=== PATIENT | male | born 1950 | race Caucasian/White ===

== ENCOUNTER 2017-01-21 15:40 | Outpatient (CLI) | payer MEDICARE, OTHER | END 2017-01-21 15:41 | disposition short-term general hospital (02) | LOC: EMS 15:40 | PROVIDERS: ATTEND Surgery | DX: R53.1 Weakness (principal) | CPT/HCPCS: A0425; A0429 ==

== ENCOUNTER 2018-11-29 12:50 | Outpatient (CLI) | payer MEDICARE, BC ==
[~2018-11-29 12:50] MED LIST: ALBUTEROL NEB 2.5 MG/3 ML INH SCH
== END 2018-11-29 12:51 | disposition home or self-care (01) ==
LOC: RT 12:50
PROVIDERS: ATTEND Family Medicine
DX: R06.09 Other forms of dyspnea (principal)
CPT/HCPCS: 94060; 94664

== ENCOUNTER 2019-02-22 13:13 | Outpatient (CLI) | payer MEDICARE, BC ==
[2019-02-22 17:53] LABS: BASOPHILS # (AUTO) 0.1 10^3/uL (0.0-0.1); BASOPHILS % (AUTO) 0.8 %; EOSINOPHILS # (AUTO) 0.7 10^3/uL (0.0-0.7); EOSINOPHILS % (AUTO) 8.6 %; LYMPHOCYTES # (AUTO) 1.5 10^3/uL (1.5-3.5); LYMPHOCYTES % (AUTO) 17.4 %; MEAN CORPUSCULAR HEMOGLOBIN 31.2 pg (27.0-31.0); MEAN CORPUSCULAR HGB CONC 31.3 g/dL (32.0-36.0); MEAN CORPUSCULAR VOLUME 99.7 fL (80.0-94.0); MEAN PLATELET VOLUME 10.3 fL (7.4-11.4); MONOCYTES # (AUTO) 0.9 10^3/uL (0.0-1.0); MONOCYTES % (AUTO) 10.8 %; NEUTROPHILS # (AUTO) 5.2 10^3/uL (1.5-6.6); NEUTROPHILS % (AUTO) 61.8 %; PLT - PLATELET COUNT 255 10^3/uL (130-450); RED BLOOD COUNT 3.85 10^6/uL (4.70-6.10); RED CELL DISTRIBUTION WIDTH 12.8 % (12.0-15.0); WHITE BLOOD COUNT 8.4 x10^3/uL (4.8-10.8)
[2019-02-22 18:21] LABS: ALBUMIN 3.7 g/dL (3.2-5.5); BILIRUBIN,TOTAL 0.7 mg/dL (0.2-1.0); CALCIUM 9.1 mg/dL (8.5-10.3); CREATININE 2.4 mg/dL (0.6-1.2); TOTAL PROTEIN 7.5 g/dL (6.7-8.2)
[2019-02-22 18:26] LABS: THYROID STIMULATING HORMONE 0.92 uIU/mL (0.34-5.60)
[2019-02-22 18:34] LABS: FERRITIN 146.9 ng/mL (23.9-336.2)
[2019-02-22 18:37] LABS: FOLATE 14.75 ng/mL (5.90 - >24.8)
[2019-02-22 20:56] LABS: PLATELET ESTIMATE, MANUAL NORMAL (130-450,000) (NORMAL); PLATELET MORPHOLOGY RARE GIANT PLATELETS (NORMAL); RBC MORPHOLOGY (MULTIPLE) NORMAL APPEARANCE (NORMAL)
== END 2019-02-22 13:14 | disposition home or self-care (01) ==
LOC: LAB.S 13:13
PROVIDERS: ATTEND Nurse Practitioner Family
DX: D64.9 Anemia, unspecified (principal); R71.8 Other abnormality of red blood cells; N18.3 Chronic kidney disease, stage 3 (moderate)
CPT/HCPCS: 36415; 80053; 82607; 82728; 82746; 83540; 84443; 84466; 85025

== ENCOUNTER 2019-03-18 11:46 | Outpatient (CLI) | payer MEDICARE, BC ==
[2019-03-18] MEDS ORDERED: REGADENOSON 0.4 MG/5 ML SYRINGE IVP ONE ×2 (12:59→13:30)
[2019-03-18] MEDS ORDERED: AMINOPHYLLINE 250 MG/10 ML VIAL ONE (12:59)
--- NOTE | 2019-03-18 15:42 | CARDIAC PROCEDURE NOTE ---
DATE OF SERVICE: 03/18/2019 Physician: Phoebe Wiggins MD, [facility] INDICATIONS: Dyspnea. CARDIAC RISK FACTORS: Male gender, advanced age, hypertension, recent ex-smoker. PROCEDURE: After signing informed consent, the patient underwent a Lexiscan pharmaceutical stress test with nuclear myocardial perfusion imaging. RESTING HEART RATE: 65. PEAK HEART RATE: 85. RESTING BLOOD PRESSURE: 130/70. PEAK BLOOD PRESSURE: 150/70. Lexiscan was infused per protocol. The patient developed brief "neck pressure," rated 5/10 and brief shortness of breath, both of which subsided in about 2 minutes. Oxygen saturation was 98-100% on room air during the entire test. RESTING EKG: Normal sinus rhythm, left atrial enlargement, early R/S transition. EKG AT PEAK: No new ST-segment or T-wave changes. SUMMARY 1. Abnormal resting EKG. 2. No ischemic changes by EKG criteria during this pharmaceutical stress test. 3. Nuclear images reported separately. 4. Cardiac risk: Low-moderate. cc: RONNIE Mckeon TD: 03/18/2019 15:23 MTDD
--- NOTE | 2019-03-19 09:28 | Nuclear Medicine Report ---
Reason: DYSNEA Procedure Date: 03/18/2019 Accession Number: [id number] / [id number] Procedure: NM - Myocardial Perfusion STR/RST CPT Code: FULL RESULT: EXAM: SINGLE-ISOTOPE PHARMACOLOGICAL STRESS TEST WITH REGADENOSON. SINGLE-ISOTOPE AND ONE-DAY REST/STRESS MYOCARDIAL PERFUSION SCANS WITH TOMOGRAPHIC IMAGING, QUANTITATIVE ANALYSIS, WALL MOTION ANALYSIS AND CALCULATION OF EJECTION FRACTION. EXAM DATE: 03/18/2019 12:40 PM. CLINICAL HISTORY: Dyspnea. COMPARISON: None available. TECHNIQUE: After the intravenous administration of 9.5 mCi of Tc-99m sestamibi, a rest myocardial perfusion scan was done with tomography. Motion correction was applied when appropriate. After an appropriate delay, pharmacological stress was performed with the infusion of 0.4 mg regadenoson per protocol. According to protocol, 43 mCi of Tc-99m sestamibi was injected for stress myocardial perfusion scan. Motion correction was applied when appropriate. Gated tomographic images were obtained for wall motion analysis and computation of left ventricular ejection fraction. FINDINGS: On visual analysis, there is a mild reversible defect in the distal inferolateral wall. No additional convincing significant fixed or reversible perfusion defects. Computer analysis Summed stress score 6 Summed rest score 0 Summed difference score 6 Wall motion analysis demonstrates no focal wall motion abnormality. The left ventricular end-diastolic volume is 70 cc. The left ventricular end-systolic volume is 10 cc. The left ventricular ejection fraction is calculated to be 86%. IMPRESSION: 1. On visual analysis, there is an apparent mild severity reversible defect in the distal inferolateral wall. 2. Left ventricular ejection fraction of >65%. 3. Normal segmental and global wall motion. 4. Normal left ventricular cavity size, no change with stress. 5. Based on computer analysis, mildly abnormal study with moderate ischemia. Please correlate findings with stress ECG tracings and procedure notes. RADIA
== END 2019-03-18 11:47 | disposition home or self-care (01) ==
LOC: DI 11:46
PROVIDERS: ATTEND Nurse Practitioner Family
DX: R06.00 Dyspnea, unspecified (principal); I25.10 Atherosclerotic heart disease of native coronary artery without angina pectoris; R94.31 Abnormal electrocardiogram [ECG] [EKG]
CPT/HCPCS: 78452; 93017; A9500; J2785

== ENCOUNTER 2019-03-25 12:42 | Outpatient (CLI) | payer MEDICARE, BC ==
--- NOTE | 2019-03-25 15:07 | Ultrasound Report ---
Reason: CKD STAGE IV, HTN, ANEMIA Procedure Date: 03/25/2019 Accession Number: [id number] / [id number] Procedure: US - Retroperitoneal CPT Code: FULL RESULT: EXAM: RENAL ULTRASOUND EXAM DATE: 03/25/2019 01:30 PM. CLINICAL HISTORY: CKD STAGE IV, HTN, ANEMIA. COMPARISON: None. TECHNIQUE: Real-time scanning was performed with static images obtained. FINDINGS: Right Kidney: 9.7 x 4.5 x 4.5 cm. Normal echotexture with no stones, contour-deforming masses, or hydronephrosis. No significant atrophy. There is a benign-appearing 3.0 cm maximal diameter upper pole cyst of no significance. Left Kidney: cm. Normal echotexture with no stones, contour-deforming masses, or hydronephrosis. Bladder: Bilateral jets seen. The prevoid bladder volume was 146 cc. The postvoid bladder volume was 10.3 cc. Other: None. IMPRESSION: 1. No suspicious mass, significant atrophy, or hydronephrosis. 2. Tiny postvoid bladder volume. RADIA
== END 2019-03-25 12:43 | disposition home or self-care (01) ==
LOC: DI 12:42
PROVIDERS: ATTEND Internal Medicine Nephrology
DX: I12.9 Hypertensive chronic kidney disease with stage 1 through stage 4 chronic kidney disease, or unspecified chronic kidney disease (principal); N18.4 Chronic kidney disease, stage 4 (severe); D63.1 Anemia in chronic kidney disease; N13.8 Other obstructive and reflux uropathy; N40.1 Benign prostatic hyperplasia with lower urinary tract symptoms
CPT/HCPCS: 76770

== ENCOUNTER 2019-05-21 12:50 | Outpatient (CLI) | payer MEDICARE, BC ==
[2019-05-21 17:38] LABS: ALBUMIN 3.8 g/dL (3.2-5.5); CALCIUM 8.7 mg/dL (8.5-10.3); CREATININE 2.4 mg/dL (0.6-1.2)
[2019-05-21 18:54] LABS: MAGNESIUM 2.1 mg/dL (1.7-2.8); PHOSPHORUS 2.8 mg/dL (2.5-4.6)
== END 2019-05-21 12:51 | disposition home or self-care (01) ==
LOC: LAB.S 12:50
PROVIDERS: ATTEND Internal Medicine Nephrology
DX: I12.9 Hypertensive chronic kidney disease with stage 1 through stage 4 chronic kidney disease, or unspecified chronic kidney disease (principal); N18.4 Chronic kidney disease, stage 4 (severe); D63.1 Anemia in chronic kidney disease; N40.1 Benign prostatic hyperplasia with lower urinary tract symptoms; N13.8 Other obstructive and reflux uropathy
CPT/HCPCS: 36415; 80069; 82728; 83540; 83735; 84466

== ENCOUNTER 2020-04-29 13:03 | Inpatient (IN) | payer MEDICARE, BC ==
[2020-04-29] MEDS ORDERED: SODIUM CHLORIDE 0.9% 1,000 ML IV STA (14:29)
[2020-04-29] MEDS ORDERED: ONDANSETRON 4 MG/2 ML VIAL IVP STA (14:39)
[2020-04-29] MEDS ORDERED: DEXAMETHASONE 10 MG/ML VIAL IVP STA (14:40)
--- NOTE | 2020-04-29 14:42 | ED Physician Documentation ---
History of Present Illness - Stated complaint Stated Complaint: NOT EATING/DRINKING - Chief complaint Chief Complaint: General - History obtained from History obtained from: Patient - Additonal information Additional information: 69-year-old gentleman with history of COPD, esophageal cancer. He just finished up a 5-week course of radiation and chemotherapy. He has had significant troubles with vomiting throughout his chemotherapy. He was inpatient for 4 days last week for intractable nausea and vomiting. He was in the ER at [facility] yesterday. At that time his white blood cell count was 1.0. Hemoglobin 9.5. BUN 47. Creatinine 2.36. He had elevated liver enzymes with an alkaline phosphatase of 367, ALT 500, AST 125, total bili 1.4. Platelets were 78. Despite getting fluids and antiemetics yesterday and taking outpatient antiemetics he returns today with severe vomiting. He has mild central epigastric pain which is not new. No fevers. Review of Systems Ten Systems: 10 systems reviewed and negative Constitutional: reports: Fatigue GI: reports: Nausea, Vomiting, Diarrhea PD PAST MEDICAL HISTORY - Allergies Allergies/Adverse Reactions: Allergies Allergy/AdvReac Type Severity Reaction Status Date / Time prazosin Allergy Unknown Verified 04/29/20 13:29 atorvastatin AdvReac Unknown Verified 04/29/20 13:29 PD ED PE NORMAL - Vitals Vital signs reviewed: Yes - General General: Alert and oriented X 3, No acute distress - HEENT HEENT: PERRL, EOMI - Neck Neck: Supple, no meningeal sign, No bony TTP - Cardiac Cardiac: RRR, No murmur - Respiratory Respiratory: No respiratory distress, Clear bilaterally - Abdomen Abdomen: Normal bowel sounds, Soft, Non tender - Back Back: No CVA TTP, No spinal TTP - Derm Derm: Normal color, Warm and dry - Extremities Extremities: No edema, No calf tenderness / cord - Neuro Neuro: Alert and oriented X 3, Normal speech Results - Vitals Vitals: Vital Signs - 24 hr 04/29/20 04/29/20 13:19 16:00 Temperature 36.5 C Heart Rate 111 H 107 H Respiratory 16 18 Rate Blood Pressure 150/80 H 170/98 H O2 Saturation 99 99 Oxygen O2 Source Room air - Labs Labs: Laboratory Tests 04/29/20 04/29/20 14:51 14:51 WBC 0.8 L* RBC 2.83 L Hgb 8.9 L Hct 27.0 L MCV 95.4 H MCH 31.4 H MCHC 33.0 RDW 12.3 Plt Count 76 L MPV 10.6 Neut # (Auto) Not Reportable Lymph # (Auto) Not Reportable Dorado # (Auto) Not Reportable Eos # (Auto) Not Reportable Baso # (Auto) Not Reportable Absolute Nucleated RBC Not Reportable Total Counted 50 Band Neuts % (Manual) 2 Abnorm Lymph % (Manual) 0 Nucleated RBC % Not Reportable Neutrophils # (Manual) 0.6 L Lymphocytes # (Manual) 0.1 L Monocytes # (Manual) 0.1 Eosinophils # (Manual) 0.0 Basophils # (Manual) 0.0 Differential Comment MANUAL DIFFERENTIAL Platelet Estimate DECREASED (<130,000) Platelet Morphology NORMAL APPEARANCE RBC Morph Micro Appear NORMAL APPEARANCE Sodium 138 Potassium 4.5 Chloride 108 Carbon Dioxide 17 L Anion Gap 13.0 BUN 40 H Creatinine 2.1 H Estimated GFR (MDRD) 31 L Glucose 105 H Calcium 8.6 Magnesium 1.9 Total Bilirubin 1.5 H AST 72 H ALT 309 H Alkaline Phosphatase 270 H Total Protein 6.5 L Albumin 2.9 L Globulin 3.6 Albumin/Globulin Ratio 0.8 L PD MEDICAL DECISION MAKING - ED course ED course: 69-year-old gentleman presents with nausea and vomiting. He is been in and out of the hospital. It is related to his chemotherapy. He was in the ER yesterday and failed to improve with oral meds at home. He was given several rounds of antiemetics here without improvement. He is neutropenic. No evidence of infection or fever. Departure - Departure Disposition: 66 [facility] DC/Xfer Clinical Impression: Intractable nausea and vomiting, Chemotherapy induced nausea and vomiting Neutropenia Qualifiers: Neutropenia type: secondary to cancer chemotherapy Qualified Code(s): D70.1 - Agranulocytosis secondary to cancer chemotherapy; T45.1X5A - Adverse effect of antineoplastic and immunosuppressive drugs, initial encounter Condition: Stable
[2020-04-29 14:58] LABS: BASOPHILS % (AUTO) 1.3 %; EOSINOPHILS % (AUTO) 2.5 %; HGB - HEMOGLOBIN 8.9 g/dL (14.0-18.0); LYMPHOCYTES % (AUTO) 10.1 %; MEAN CORPUSCULAR HEMOGLOBIN 31.4 pg (27.0-31.0); MEAN CORPUSCULAR VOLUME 95.4 fL (80.0-94.0); MEAN PLATELET VOLUME 10.6 fL (7.4-11.4); MONOCYTES % (AUTO) 15.2 %; NEUTROPHILS % (AUTO) 67.1 %; PLT - PLATELET COUNT 76 10^3/uL (130-450); RED BLOOD COUNT 2.83 10^6/uL (4.70-6.10); RED CELL DISTRIBUTION WIDTH 12.3 % (12.0-15.0)
[2020-04-29 15:11] LABS: WHITE BLOOD COUNT 0.8 x10^3/uL (4.8-10.8)
[2020-04-29 15:12] LABS: ABNORMAL LYMPHS % (MANUAL) 0 %; ALBUMIN 2.9 g/dL (3.2-5.5); ALBUMIN/GLOBULIN RATIO 0.8 (1.0-2.2); BILIRUBIN,TOTAL 1.5 mg/dL (0.2-1.0); CALCIUM 8.6 mg/dL (8.5-10.3); CREATININE 2.1 mg/dL (0.6-1.2); MAGNESIUM 1.9 mg/dL (1.7-2.8); TOTAL PROTEIN 6.5 g/dL (6.7-8.2)
[2020-04-29 15:38] LABS: BAND NEUTROPHILS % (MANUAL) 2 %; DIFFERENTIAL COMMENT MANUAL DIFFERENTIAL; LYMPHOCYTES # (MANUAL) 0.1 10^3/uL (1.5-3.5); LYMPHOCYTES % (MANUAL) 16 %; MONOCYTES # (MANUAL) 0.1 10^3/uL (0.0-1.0); PLATELET ESTIMATE, MANUAL DECREASED (<130,000) (NORMAL); PLATELET MORPHOLOGY NORMAL APPEARANCE (NORMAL); RBC MORPHOLOGY (MULTIPLE) NORMAL APPEARANCE (NORMAL)
[2020-04-29] MEDS ORDERED: METOCLOPRAMIDE 10 MG/2 ML VIAL IVP STA (16:47)
[2020-04-29] MEDS ORDERED: ONDANSETRON 4 MG/2 ML VIAL IVP PRN (17:44)
[2020-04-29 18:08] LABS: INR 1.2 (0.8-1.2); PT - PROTHROMBIN TIME 13.4 secs (9.9-12.6)
[2020-04-29] MEDS: DEXTROSE 5%-0.9% NACL 1,000 ML IV SCH (18:56)
--- NOTE | 2020-04-29 19:29 | HISTORY & PHYSICAL EXAMINATION ---
Chief Complaint - Chief Complaint Chief Complaint: Intractable nausea vomiting History of Present Illness - Admitted From Admitted From:: [facility] ED - History Obtained From Records Reviewed: Yes History obtained from: Patient - History of Present Illness HPI Comment/Other: Patient is a 69-year-old male with history of esophageal cancer who presented to the ED with intractable nausea vomiting and diarrhea. For the past 6 weeks he has been undergoing chemo/radiation therapy. This was completed about a week ago. His cancer care is with [facility]. In this time he has been significantly nauseous with frequent vomits daily. He has been to the emergency room multiple times on account of this. Today he reported about 5 episodes of vomiting and 3 episodes of diarrhea. Consequently he is very weak. His creatinine upon work- up in the ED was 2.1. He denied chest pain, dyspnea or fever. He reports being cold he has a mild sharp abdominal pain which is intermittent. He lives with his . He normally walks without any walking aid lately his been requiring some assistance with personal cares and grooming. History - Past Medical History Cardiovascular: reports: Hypertension, High cholesterol Respiratory: reports: COPD, Emphysema Neuro: reports: TIA GI: reports: GERD : reports: Renal insuffiency (chronic) Other Past Medical History: Esophageal cancer - Past Surgical History HEENT: reports: Tonsil/Adenoidectomy - Family & Social History Family History Comment/Other: Patient's brother recently from esophageal cancer. His father from lung cancer. His mother at age 90 from C. difficile infection. Living arrangement: At home Living Situation: With spouse/s.o. Social History Notes: Lives at home with his . He had smoked cigarettes for at least 30 years but quit about 2 years ago. He also stopped drinking about 6 weeks ago when he was diagnosed with esophageal cancer. He denies recreational substance use. - POLST Patient has POLST: No POLST Status: Full Code Meds/Allgy - Home Medications Home Medications: Ambulatory Orders Medication Instructions Recorded Confirmed Albuterol Sulf [Ventolin Hfa 1 - 2 puffs INH Q4HR PRN 04/29/20 04/29/20 Inhaler] Aspirin Chewable [St Vishnu 81 mg PO DAILY 04/29/20 04/29/20 Aspirin] Budesonide/Formoterol Fumarate 1 puffs INH DAILY 04/29/20 04/29/20 [Symbicort 80-4.5 Mcg Inhaler] Metoclopramide [Reglan] 1 tab PO PRN PRN 04/29/20 04/29/20 Metoprolol Succinate [Toprol Xl] 25 mg PO DAILY 04/29/20 04/29/20 Pantoprazole [Protonix] 40 mg PO DAILY 04/29/20 04/29/20 Prochlorperazine [Compazine] 10 mg PO Q6H PRN 04/29/20 04/29/20 Rosuvastatin Calcium [Crestor] 20 mg PO DAILY 04/29/20 04/29/20 amLODIPine [Norvasc] 5 mg PO HS 04/29/20 04/29/20 - Allergies Allergies/Adverse Reactions: Allergies Allergy/AdvReac Type Severity Reaction Status Date / Time prazosin Allergy Unknown Verified 04/29/20 13:29 atorvastatin AdvReac Unknown Verified 04/29/20 13:29 Review of Systems - Constitutional Constitutional: reports: Fatigue, Weakness, Poor appetite. denies: Fever - Eyes Eyes: denies: Pain - Ears, Nose & Throat Ears, Nose & Throat: denies: Ear pain - Cardiovascular Cariovascular: denies: Irregular heart rate, Palpitations, Chest pain, Edema, Lightheadedness, Syncope - Respiratory Respiratory: reports: Cough. denies: Sputum production, Wheezing, SOB at rest, SOB with exertion - Gastrointestinal Gastrointestinal: reports: Abdominal pain, Diarrhea, Nausea, Vomiting, Reflux/heartburn, Bloating, Poor appetite. denies: Abdominal distention, Constipation, Coffee grounds emesis - Genitourinary Genitourinary: denies: Dysuria, Frequency, Urgency, Hematuria - Musculoskeletal Musculoskeletal: denies: Muscle pain, Back pain, Muscle aches - Integumentary Integumentary: denies: Rash, Pruritis, Lesions - Neurological Neurological: reports: General weakness. denies: Focal weakness, Headache, Dizziness, Numbness, Memory problems - Psychiatric Psychiatric: denies: Depression, Anxiety - Endocrine Endocrine: denies: Polyuria, Polydypsia - Hematologic/Lymphatic Hematologic/Lymphatic: denies: Anemia, Bruising, Petechiae Prior Level of Functionality: Patient is normally independent of activities of daily living. He would no rmally get around without any walking aid. However lately he has been requiring some assistance with personal care. Exam - Vital Signs Vital Signs: Vital Signs x48h Temp Pulse Pulse Resp BP BP Pulse Ox 04/29/20 18:00 36.6 C 99 108 H 18 155/86 H 182/82 H 99 04/29/20 16:00 107 H 18 170/98 H 99 04/29/20 13:19 36.5 C 111 H 16 150/80 H 99 - Physical Exam General Appearance: positive: No acute distress, Alert, Other (Weak) Eyes Bilateral: positive: PERRL, EOMI ENT: positive: Dry mucous membranes Neck: positive: No JVD, Trachea midline Respiratory: positive: Chest non-tender, No respiratory distress, Breath sounds nml. negative: Wheezes, Rales, Rhonchi Cardiovascular: positive: Regular rate & rhythm, No murmur Abdomen: positive: Non-tender, Nml bowel sounds. negative: Guarding, Rebound Back: positive: Nml inspection Skin: positive: Color nml, No rash, Warm, Dry Extremities: positive: Non-tender, Full ROM, Nml appearance, No pedal edema Neurologic/Psychiatric: positive: Oriented x3, Depressed mood/affect Conclusion/Plan - Problem List (1) Intractable nausea and vomiting Conclusion/Plan: This is likely as a result of patient's chemotherapies. Patient reports that the chemotherapy cycle has been completed for a week now. Zofran, Phenergan and Ativan ordered to be used as needed for nausea/vomiting. Patient receiving IV hydration with D5+NS at 125ml/hr (2) Neutropenia Conclusion/Plan: Likely related to chemotherapy for esophageal cancer. Patient is on neutropenic precaution Qualifiers: Neutropenia type: secondary to cancer chemotherapy Qualified Code(s): D70.1 - Agranulocytosis secondary to cancer chemotherapy; T45.1X5A - Adverse effect of antineoplastic and immunosuppressive drugs, initial encounter (3) Esophageal cancer Conclusion/Plan: Patient receives care at [facility]. (4) Hypertension Conclusion/Plan: Hydralazine 10 mg IV every 8 hours ordered (5) Chronic kidney disease Conclusion/Plan: Patient's baseline creatinine is about 2.5. Will monitor (6) Hyperlipidemia Conclusion/Plan: Patient takes rosuvastatin at home. Will order an equivalent statin when patient able to tolerate. (7) COPD (chronic obstructive pulmonary disease) Conclusion/Plan: Not in exacerbation. We will order budesonide/formoterol and DuoNeb as needed. - Lab Results Fish Bones: 04/29/20 14:51 04/29/20 14:51 Core Measures - Anticipated LOS I expect patient to be DC'd or transferred within 96 hours.: Yes - DVT/VTE - Prophylaxis VTE/DVT Device ordered at admit?: Yes
[2020-04-29] MEDS ORDERED: PROMETHAZINE INJ 25 MG in SODIUM CHLORIDE 0.9% 50 ML IV PRN (20:21)
[2020-04-29] MEDS: hydrALAZINE INJ 20 MG/ML VIAL IVP SCH (21:02)
[2020-04-30] MEDS: SODIUM CHLORIDE FLUSH 0.9% 10 ML SYRINGE IVP SCH ×4 (00:30→23:46)
[2020-04-30] MEDS ORDERED: FAMOTIDINE 20 MG/2 ML SYRINGE IVP STA (00:32)
[2020-04-30] MEDS: SODIUM CHLORIDE FLUSH 0.9% 10 ML SYRINGE IVP PRN ×3 (01:01→19:39)
[2020-04-30] MEDS: DEXTROSE 5%-0.9% NACL 1,000 ML IV SCH ×3 (02:45→19:51)
[2020-04-30] MEDS: MORPHINE 2 MG/ML CARPUJECT IVP PRN ×2 (02:48→14:15)
[2020-04-30] MEDS: hydrALAZINE INJ 20 MG/ML VIAL IVP SCH (05:57)
[2020-04-30] MEDS ORDERED: PANTOPRAZOLE 40 MG VIAL IVP SCH (07:00)
[2020-04-30] MEDS ORDERED: hydrALAZINE INJ 20 MG/ML VIAL IVP SCH ×2 (07:00→13:00)
[2020-04-30] MEDS: BUDESONIDE 0.5 MG/2 ML NEB INH SCH ×2 (07:35→19:55)
[2020-04-30] MEDS: FORMOTEROL FUMARATE NEB 20 MCG/2 ML INH SCH ×2 (07:36→19:55)
[2020-04-30] MEDS ORDERED: SODIUM CHLORIDE FLUSH 0.9% 10 ML SYRINGE IVP PRN (09:16)
[2020-04-30 09:17] LABS: BASOPHILS % (AUTO) 1.5 %; HGB - HEMOGLOBIN 8.1 g/dL (14.0-18.0); LYMPHOCYTES # (AUTO) 0.1 10^3/uL (1.5-3.5); LYMPHOCYTES % (AUTO) 9.1 %; MEAN CORPUSCULAR HEMOGLOBIN 31.2 pg (27.0-31.0); MEAN CORPUSCULAR HGB CONC 32.9 g/dL (32.0-36.0); MEAN CORPUSCULAR VOLUME 94.6 fL (80.0-94.0); MEAN PLATELET VOLUME 10.3 fL (7.4-11.4); MONOCYTES # (AUTO) 0.2 10^3/uL (0.0-1.0); MONOCYTES % (AUTO) 27.3 %; NEUTROPHILS % (AUTO) 57.6 %; PLT - PLATELET COUNT 81 10^3/uL (130-450); RED CELL DISTRIBUTION WIDTH 12.6 % (12.0-15.0)
[2020-04-30 09:21] LABS: WHITE BLOOD COUNT 0.7 x10^3/uL (4.8-10.8)
[2020-04-30 09:22] LABS: NEUTROPHILS # (AUTO) 0.4 10^3/uL (1.5-6.6)
[2020-04-30 09:26] LABS: CALCIUM 8.3 mg/dL (8.5-10.3); CREATININE 1.7 mg/dL (0.6-1.2)
[2020-04-30 09:45] LABS: RBC MORPHOLOGY (MULTIPLE) 1+ ANISOCYTOSIS (NORMAL)
[2020-04-30] MEDS ORDERED: PROCHLORPERAZINE 10 MG/2 ML VIAL IVP PRN (10:48)
[2020-04-30] MEDS ORDERED: SUCRALFATE 1 GM/10 ML UDC PO PRN (10:50)
--- NOTE | 2020-04-30 10:53 | PROVIDER PROGRESS NOTE ---
Assessment/Plan - Problem List (1) Intractable nausea and vomiting Assessment/Plan: This has been ongoing for 5 weeks. He required a 4-day inpatient stay at [facility] to manage this and has been discharged with oral Reglan and oral Compazine. Both of these oral tablets make him nauseated and create vomiting. The patient also describes GERD symptoms, possibly from acid refluxing during his vomiting. Continue IV fluids. We will slowly advance diet to a clear liquid diet, getting Zofran 30 minutes before clear liquid diet meals. Will order Carafate as needed for the indigestion/reflux symptoms. Dietary consult planned to help with management. (2) Esophageal cancer Assessment/Plan: According to the patient, he has finished his chemotherapy and radiation therapy. There was a discussion about a feeding tube with the RN of his thoracic surgeon, Dr Puente, however nothing is currently scheduled. Dr. Puente is the surgeon that we will be performing removal of the esophagus and cancer and pulling up his gastric wall to anastomose with the upper esophagus, according to the . That surgery is not scheduled yet. I told the patient, and at bedside today, that we will not be placing any ng or PEG tubes here, and he would need to be transferred to a hospital with higher level of care for that type of management. The plan is to help him with meds and diet changes, as have been started yesterday. They were both pleased that no tube insertion is planned. Will obtain CT of abdomen and chest for evaluation of extent of esophageal tumor and look for esophageal stenosis. There is a written CT report available that was done at [facility] approximately a week ago, for comparison. (3) Elevated LFTs Assessment/Plan: According to records from the recent hospitalization at [facility], this is related to his chemo and radiation. AST and ALT are slightly lower from a week ago. The bilirubin is unchanged. Will follow LFTs every other day. (4) Neutropenia Qualifiers: Neutropenia type: secondary to cancer chemotherapy Qualified Code(s): D70.1 - Agranulocytosis secondary to cancer chemotherapy; T45.1X5A - Adverse effect of antineoplastic and immunosuppressive drugs, initial encounter Assessment/Plan: Related to chemotherapy that he has been is receiving over 5 weeks. WBC of 0.4 has improved to 0.7 today. He is on neutropenic precautions in his room (reverse isolation). (5) Anemia Assessment/Plan: Hemoglobin is running 8-8.5. At recent visits at [facility], his hemoglobin was 9-10. We will order B12, folate levels and iron stores and replace if low. Because of his longstanding vomiting, will also check guaiac stool for any GI bl ood loss. (6) Hypertension Assessment/Plan: Will resume his nighttime amlodipine and daytime Toprol with hold orders because blood pressure is currently "soft" since he is dehydrated (7) Chronic kidney disease Assessment/Plan: He was admitted yesterday with creatinine 2.1 which is his baseline. Today with hydration, his creatinine is 1.7. Follow BMP daily (8) Hyperlipidemia Assessment/Plan: Hold the Crestor so that there are fewer p.o. meds to take during N/V sx. (9) COPD (chronic obstructive pulmonary disease) Assessment/Plan: Currently no exacerbation, but he reports a chronic wet cough. His inhalers will be ordered to use here - Current Meds Current Meds: Current Medications Generic Name Dose Route Start Last Admin Trade Name Freq PRN Reason Stop Dose Admin Budesonide 0.5 mg 04/30/20 07:00 04/30/20 07:35 Pulmicort INH 0.5 mg RTBID EMILY Administration Formoterol Fumarate 20 mcg 04/30/20 07:00 04/30/20 07:36 Perforomist INH 20 mcg RTBID EMILY Administration Dextrose/Sodium Chloride 1,000 mls @ 125 mls/hr 04/29/20 18:00 04/30/20 10:21 D5ns IV 125 mls/hr .Q8H EMILY Administration Morphine Sulfate 2 mg 04/30/20 00:32 04/30/20 02:48 Morphine (Carpuject) IVP 2 mg Q4HR PRN Administration PAIN Pantoprazole Sodium 40 mg 04/30/20 07:00 04/30/20 05:57 Protonix IVP 40 mg QDAC EMILY Administration Sodium Chloride 10 ml 04/29/20 20:17 04/30/20 05:57 Normal Saline Flush 0.9% IVP 10 ml PRN PRN Administration NEEDED PER PROVIDER ORDERS Sodium Chloride 10 ml 04/30/20 01:00 04/30/20 10:22 Normal Saline Flush 0.9% IVP Not Given 0100,0900,1700 EMILY Sodium Chloride 20 ml 04/30/20 09:16 04/30/20 09:00 Normal Saline Flush 0.9% IVP 20 ml PRN PRN Administration After Blood Draw - Lab Result Fish Bone Diagrams: 04/30/20 09:00 04/30/20 09:00 - Additional Planning My Orders: My Active Orders 04/29/20 17:39 DIET [NPO] [DIET] 04/29/20 17:49 Isolation [Infection Precautions] [RC] QSKYFT 04/29/20 17:50 Miscellaenous Nursing Order [] [facility] 04/29/20 18:00 Dextrose 5%-0.9% NaCl [D5ns] 1,000 ml IV 125 mls/hr 04/30/20 10:45 Miscellaenous Nursing Order [] [facility] 04/30/20 10:48 Prochlorperazine Inj [Compazine Inj] 10 mg IVP Q6HR PRN 04/30/20 10:48 Albuterol Sulf [Ventolin Hfa Inhaler] 2 puffs INH Q4HR PRN 04/30/20 10:50 Sucralfate [Carafate] 1 gm PO 0700,1100,1600,2200 PRN 04/30/20 11:00 Metoprolol Succinate [Toprol Xl] 25 mg PO DAILY Pantoprazole [Protonix] 40 mg PO DAILY 04/30/20 Lunch Clear Liquid Diet [DIET] 04/30/20 11:30 Ondansetron Inj [Zofran Inj] 4 mg IVP 0800,1130,1700 04/30/20 21:00 amLODIPine [Norvasc] 5 mg PO HS 05/01/20 09:00 Aspirin Chewable [St Vishnu Aspirin] 81 mg PO DAILY Budesonide/Formoterol Fumarate [Symbicort 80-4.5 Mcg Inhaler] 1 puffs INH DAILY Subjective - Subjective Patient Reports: Feeling Better, Cough, Fatigue, Pain (He has pain in the epigastric area with swallowing. He denies any of his pills getting "stuck" when he swallows however) Objective Vital Signs: Vital Signs - 24 hr 04/29/20 04/29/20 04/29/20 13:19 16:00 18:00 Temperature 36.5 C 36.6 C Heart Rate 111 H 107 H 99 Heart Rate [ 108 H Brachial] Respiratory 16 18 18 Rate Blood Pressure 150/80 H 170/98 H 155/86 H Blood Pressure 182/82 H [Left Brachial artery] O2 Saturation 99 99 99 04/29/20 04/29/20 04/29/20 21:00 21:02 21:07 Temperature Heart Rate Heart Rate [ 96 99 92 Brachial] Respiratory Rate Blood Pressure 135/80 H Blood Pressure 139/64 H 136/76 H [Left Brachial artery] O2 Saturation 04/29/20 04/29/20 04/29/20 21:12 21:15 21:17 Temperature Heart Rate Heart Rate [ 90 91 94 Brachial] Respiratory Rate Blood Pressure Blood Pressure 128/73 131/64 H 120/68 [Left Brachial artery] O2 Saturation 04/29/20 04/29/20 04/29/20 21:22 21:33 21:45 Temperature Heart Rate Heart Rate [ 95 99 95 Brachial] Respiratory Rate Blood Pressure Blood Pressure 106/63 136/56 H 120/59 L [Left Brachial artery] O2 Saturation 04/29/20 04/30/20 04/30/20 22:47 05:57 06:13 Temperature 36.5 C 36.5 C Heart Rate Heart Rate [ 93 97 Brachial] Respiratory 18 18 Rate Blood Pressure 153/74 H Blood Pressure 120/59 L 153/74 H [Left Brachial artery] O2 Saturation 98 97 04/30/20 04/30/20 04/30/20 06:20 06:35 07:38 Temperature Heart Rate 103 H Heart Rate [ Brachial] Respiratory 16 Rate Blood Pressure Blood Pressure 146/64 H 141/61 H [Left Brachial artery] O2 Saturation 04/30/20 08:00 Temperature 36.7 C Heart Rate Heart Rate [ 98 Brachial] Respiratory 18 Rate Blood Pressure Blood Pressure 129/64 [Left Brachial artery] O2 Saturation 99 Oxygen O2 Source Room air I&O (Last 24 Hrs): Intake and Output Totals x24h 04/28/20 04/29/20 04/30/20 23:59 23:59 23:59 Intake Total 1000 1950 Output Total 550 Balance 1000 1400 General: Alert, Oriented x3, Other (appears fatigued) HEENT: Mucous membr. moist/pink, Other (Icteric) Neck: Supple Neuro: Alert, Non Focal Cardiovascular: Regular rate, No murmurs Respiratory: No respiratory distress, Other (Diminishe breath sounds, no rales or wheezing) Abdomen: Normal bowel sounds, Soft, Other (Mildly distended, hypertympanic, Tenderness to moderate palpation only in the epigastric area, no guarding or rebound) Extremities: No edema - Results Results: Laboratory Results WBC 0.7 x10^3/uL (4.8-10.8) L* 04/30/20 09:00 RBC 2.60 10^6/uL (4.70-6.10) L 04/30/20 09:00 Hgb 8.1 g/dL (14.0-18.0) L 04/30/20 09:00 Hct 24.6 % (42.0-52.0) L 04/30/20 09:00 MCV 94.6 fL (80.0-94.0) H 04/30/20 09:00 MCH 31.2 pg (27.0-31.0) H 04/30/20 09:00 MCHC 32.9 g/dL (32.0-36.0) 04/30/20 09:00 RDW 12.6 % (12.0-15.0) 04/30/20 09:00 Plt Count 81 10^3/uL (130-450) L 04/30/20 09:00 MPV 10.3 fL (7.4-11.4) 04/30/20 09:00 Neut # (Auto) 0.4 10^3/uL (1.5-6.6) L* 04/30/20 09:00 Lymph # (Auto) 0.1 10^3/uL (1.5-3.5) L 04/30/20 09:00 Ward # (Auto) 0.2 10^3/uL (0.0-1.0) 04/30/20 09:00 Eos # (Auto) 0.0 10^3/uL (0.0-0.7) 04/30/20 09:00 Baso # (Auto) 0.0 10^3/uL (0.0-0.1) 04/30/20 09:00 Absolute Nucleated RBC 0.00 x10^3/uL 04/30/20 09:00 Total Counted 50 04/29/20 14:51 Band Neuts % (Manual) 2 % (0-10) 04/29/20 14:51 Abnorm Lymph % (Manual) 0 % 04/29/20 14:51 Nucleated RBC % 0.0 /100WBC 04/30/20 09:00 Neutrophils # (Manual) 0.6 10^3/uL (1.5-6.6) L 04/29/20 14:51 Lymphocytes # (Manual) 0.1 10^3/uL (1.5-3.5) L 04/29/20 14:51 Monocytes # (Manual) 0.1 10^3/uL (0.0-1.0) 04/29/20 14:51 Eosinophils # (Manual) 0.0 10^3/uL (0-0.7) 04/29/20 14:51 Basophils # (Manual) 0.0 10^3/uL (0-0.1) 04/29/20 14:51 Differential Comment MANUAL DIFFERENTIAL 04/29/20 14:51 Manual Slide Review Indicated 04/30/20 09:00 Platelet Estimate DECREASED (<130,000) (NORMAL) 04/29/20 14:51 Platelet Morphology NORMAL APPEARANCE (NORMAL) 04/29/20 14:51 RBC Morph Micro Appear 1+ ANISOCYTOSIS (NORMAL) 04/30/20 09:00 PT 13.4 secs (9.9-12.6) H 04/29/20 14:50 INR 1.2 (0.8-1.2) 04/29/20 14:50 Sodium 140 mmol/L (135-145) 04/30/20 09:00 Potassium 4.4 mmol/L (3.5-5.0) 04/30/20 09:00 Chloride 112 mmol/L (101-111) H 04/30/20 09:00 Carbon Dioxide 18 mmol/L (21-32) L 04/30/20 09:00 Anion Gap 10.0 (6-13) 04/30/20 09:00 BUN 35 mg/dL (6-20) H 04/30/20 09:00 Creatinine 1.7 mg/dL (0.6-1.2) H 04/30/20 09:00 Estimated GFR (MDRD) 40 (>89) L 04/30/20 09:00 Glucose 167 mg/dL (70-100) H 04/30/20 09:00 Calcium 8.3 mg/dL (8.5-10.3) L 04/30/20 09:00 Magnesium 1.9 mg/dL (1.7-2.8) 04/29/20 14:51 Total Bilirubin 1.5 mg/dL (0.2-1.0) H 04/29/20 14:51 AST 72 IU/L (10-42) H 04/29/20 14:51 ALT 309 IU/L (10-60) H 04/29/20 14:51 Alkaline Phosphatase 270 IU/L (42-121) H 04/29/20 14:51 Total Protein 6.5 g/dL (6.7-8.2) L 04/29/20 14:51 Albumin 2.9 g/dL (3.2-5.5) L 04/29/20 14:51 Globulin 3.6 g/dL (2.1-4.2) 04/29/20 14:51 Albumin/Globulin Ratio 0.8 (1.0-2.2) L 04/29/20 14:51 SARS-CoV-2 (PCR) NOT DETECTED 04/28/20 20:15
[2020-04-30] MEDS ORDERED: ALBUTEROL NEB 2.5 MG/3 ML INH PRN (10:54)
[2020-04-30] MEDS: ONDANSETRON 4 MG/2 ML VIAL IVP SCH ×2 (10:57→16:55)
[2020-04-30] MEDS: METOPROLOL SUCCINATE 25 MG TABLET PO SCH (11:06)
--- NOTE | 2020-04-30 14:05 | CT Report ---
PROCEDURE: CHEST WO INDICATIONS: Esophageal cancer TECHNIQUE: Noncontrast 5 mm thick sections acquired from the pulmonary apices to the posterior costophrenic angl es. 7 mm thick coronal and sagittal MIP reformats were then acquired. For radiation dose reduction, the following was used: automated exposure control, adjustment of mA and/or kV according to patient size. COMPARISON: CT abdomen and pelvis from the same date FINDINGS: Image quality: Excellent. Lungs and pleura: 3 mm pulmonary nodule right upper lobe, image 138/3. 4 mm pulmonary nodule, anteri or segment right upper lobe, image 165/3. 3 mm fissural nodule, minor fissure, right lung, possibly r epresenting a small lymph node, image 172/3. No acute air space opacities. No pleural effusions or p neumothorax. Central and peripheral airways are patent and normal in caliber. Mediastinum: Heart size is normal. No pericardial effusion. Relatively advanced coronary artery ca lcifications. No mediastinal adenopathy by size criteria. The ascending aorta is top normal in size, measuring or centimeters in diameter. Pulmonary arteries are normal in caliber. Distal esophageal wal l thickening above the GE junction. No hiatal hernia. Bones and chest wall: No suspicious bony lesions. No vertebral body compression fractures. No axil yahaira or supraclavicular adenopathy by size criteria. The thyroid is normal in size. Port-A-Cath in satisfactory position. Abdomen: Visualized upper abdominal solid organs and bowel loops appear normal in the absence of con trast. IMPRESSION: 1. Distal esophageal wall thickening may represent the patient's primary esophageal carcinoma. 2. There are 3 small nodular densities in the right lung, uncertain etiology. These can be followed o n subsequent studies. 3. Coronary artery disease. Reviewed by: Iban Mares MD on 04/30/2020 2:04 PM PST Approved by: Iban Mares MD on 04/30/2020 2:04 PM PST Station ID: [id number]
--- NOTE | 2020-04-30 14:08 | CT Report ---
PROCEDURE: Abdomen/Pelvis WO INDICATIONS: abdominal pain TECHNIQUE: Noncontrast 5 mm thick sections acquired from the diaphragms to the symphysis. 5 mm coronal and sagi ttal reformats were then performed. For radiation dose reduction, the following was used: automated exposure control, adjustment of mA and/or kV according to patient size. COMPARISON: CT chest from the same date FINDINGS: Image quality: Excellent. ABDOMEN: Lung bases: Lung bases are clear. Heart size is normal. Coronary artery calcifications. Distal eso phageal wall thickening. Small hiatal hernia. Solid organs: Liver and spleen are normal in size. Gallbladder is unremarkable. Pancreas is normal in contours. No adrenal nodules. Kidneys are normal in size, without hydronephrosis or nephrolithi asis. Peritoneum and bowel: Unenhanced bowel loops demonstrate normal wall thickness and caliber. No free fluid or air. Nodes and vessels: There are tiny left gastric lymph nodes, not clearly pathologic. No other lymphad enopathy is identified. No retroperitoneal or mesenteric adenopathy by size criteria. Aorta and infe rior vena cava are normal in caliber. Diffuse atherosclerotic calcifications in the aorta and iliac arteries. Miscellaneous: No ventral hernias. PELVIS: Genitourinary: Bladder wall thickness is normal. Miscellaneous: No inguinal hernias or adenopathy. Bones: No suspicious bony lesions. No vertebral body compression fractures. IMPRESSION: 1. Distal esophageal wall thickening may represent patient's primary esophageal carcinoma. 2. Small left gastric lymph nodes, not clearly pathologic. 3. No evidence of metastatic disease. 4. Atherosclerosis. Reviewed by: Iban Mares MD on 04/30/2020 2:07 PM [facility] Approved by: Iban Mares MD on 04/30/2020 2:07 PM PST Station ID: [id number]
[2020-04-30] MEDS: LORazepam 2 MG/ML VIAL IVP PRN (19:39)
[2020-04-30] MEDS: amLODIPine 5 MG TABLET PO SCH (21:43)
[2020-05-01] MEDS: DEXTROSE 5%-0.9% NACL 1,000 ML IV SCH ×2 (03:33→13:22)
[2020-05-01 05:27] LABS: EOSINOPHILS % (AUTO) 2.2 %; HGB - HEMOGLOBIN 7.5 g/dL (14.0-18.0); LYMPHOCYTES % (AUTO) 6.7 %; MEAN CORPUSCULAR HEMOGLOBIN 32.1 pg (27.0-31.0); MEAN CORPUSCULAR HGB CONC 33.2 g/dL (32.0-36.0); MEAN CORPUSCULAR VOLUME 96.6 fL (80.0-94.0); MEAN PLATELET VOLUME 10.3 fL (7.4-11.4); MONOCYTES # (AUTO) 0.3 10^3/uL (0.0-1.0); MONOCYTES % (AUTO) 55.6 %; NEUTROPHILS % (AUTO) 35.5 %; PLT - PLATELET COUNT 86 10^3/uL (130-450); RED BLOOD COUNT 2.34 10^6/uL (4.70-6.10); RED CELL DISTRIBUTION WIDTH 12.9 % (12.0-15.0)
[2020-05-01 05:30] LABS: NEUTROPHILS # (AUTO) 0.2 10^3/uL (1.5-6.6); WHITE BLOOD COUNT 0.5 x10^3/uL (4.8-10.8)
[2020-05-01 05:53] LABS: PLATELET ESTIMATE, MANUAL DECREASED (<130,000) (NORMAL); PLATELET MORPHOLOGY NORMAL APPEARANCE (NORMAL); RBC MORPHOLOGY (MULTIPLE) NORMAL APPEARANCE (NORMAL)
[2020-05-01 06:00] LABS: ALBUMIN 2.4 g/dL (3.2-5.5); BILIRUBIN,DIRECT 0.4 mg/dL (0.1-0.5); BILIRUBIN,TOTAL 0.9 mg/dL (0.2-1.0); CALCIUM 7.9 mg/dL (8.5-10.3); TOTAL PROTEIN 5.5 g/dL (6.7-8.2)
[2020-05-01 06:05] LABS: FOLATE 11.24 ng/mL (5.90 - >24.8)
[2020-05-01] MEDS ORDERED: PANTOPRAZOLE 40 MG TABLET PO SCH (07:00)
[2020-05-01 07:22] LABS: MAGNESIUM 1.6 mg/dL (1.7-2.8)
[2020-05-01] MEDS: ONDANSETRON 4 MG/2 ML VIAL IVP SCH ×3 (08:15→16:22)
[2020-05-01] MEDS: SODIUM CHLORIDE FLUSH 0.9% 10 ML SYRINGE IVP SCH ×3 (08:15→23:34)
[2020-05-01] MEDS: HYDROmorphone 0.5 MG/0.5 ML SYRINGE IVP PRN ×2 (08:15→18:39)
[2020-05-01] MEDS: METOPROLOL SUCCINATE 25 MG TABLET PO SCH (08:17)
[2020-05-01] MEDS ORDERED: FORMOTEROL FUMARATE INH SCH (09:00)
[2020-05-01] MEDS ORDERED: [UNRECOGNIZED DRUG - OTHER] INH SCH (09:00)
[2020-05-01] MEDS ORDERED: ASPIRIN CHEW 81 MG TABLET PO SCH (09:00)
[2020-05-01] MEDS ORDERED: BUDESONIDE INH SCH (09:00)
[2020-05-01] MEDS: FORMOTEROL FUMARATE NEB 20 MCG/2 ML INH SCH ×2 (09:38→18:12)
[2020-05-01] MEDS: BUDESONIDE 0.5 MG/2 ML NEB INH SCH ×2 (09:38→18:12)
[2020-05-01] MEDS: FLUCONAZOLE 200 MG/100 ML 100 ML IV SCH (10:04)
[2020-05-01] MEDS ORDERED: MAGNESIUM SULFATE 2 GRAM 2 GM/50 ML BAG IV SCH (10:30)
[2020-05-01] MEDS: SUCRALFATE 1 GM/10 ML UDC PO SCH ×3 (10:53→21:26)
[2020-05-01] MEDS: FERROUS SULFATE 300 MG/5 ML UDC PO SCH (11:36)
--- NOTE | 2020-05-01 11:46 | PROVIDER PROGRESS NOTE ---
Assessment/Plan - Problem List (1) Intractable nausea and vomiting Assessment/Plan: There has been no vomiting since here. He has been ordered to get scheduled antiemetic 20 minutes before his meals which are clear liquid diet. He is now done with chemotherapy, opefully the chemo side effects will subside with supportive care. Continue IV fluids for maintenance. Appreciate nutrition consult for assistance with diet suggestions. (2) Esophagitis Assessment/Plan: He continues to have pain in the epigastrium when swallowing liquids. His CT abdomen showed distal esophageal wall thickening. He will not undergo an EGD here, since he has complex esophageal pathology, but will be treated empirically since by his clinical presentation he has esophagitis which is likely related to frequent vomiting for 5 weeks and acid reflux on top of radiation. He is getting liquid Sucralfate prn and it did help him with 1 dose yesterday. Will make the liquid Sucralfate scheduled. He is also on empiric Fluconazole for possible candidal esophagitis, given his immune compromised state with neutropenia. Diet will remain clear liquids only. Continue to control symptoms of nausea with antiemetics scheduled and alternating Zofran iv with Compazine iv. From the discharge summary from [facility], he had no benefit from Magic mouthwash, he actually felt worse possibly from the taste. Continue IV fluids for maintenance. Will start tpn, for protein and calories, and decrease the D5NS iv fluid rate. Continue iv Dilaudid prn pain. Stop daily baby aspirin in case this is adding to gastritis. Will only keep his p.o. blood pressure meds given po, and will change his Pr otonix to IV, continue fluconazole IV Will order Peridex mouth care. I offered to the patient that if he does not have further improvement in his esophagitis symptoms, he could be transferred to [facility] for EGD and specialized care with GI. The patient stated he would rather have supportive care done here, and await for healing of the esophagus. (3) Esophageal cancer Assessment/Plan: The CT showed no evidence of esophageal stricture or obstruction but the distal esophageal wall itself was thick. The overall changes are slightly improved fro m the description by report of his CT scan done in [facility] about 1 week ago. This was all reported to the pt and at bedside today. (4) Elevated LFTs Assessment/Plan: These were presumed to be from chemotherapy, as per the discharge summary from [facility] from a week ago. The LFTs are improving on repeat monitoring. (5) Neutropenia Qualifiers: Neutropenia type: secondary to cancer chemotherapy Qualified Code(s): D70.1 - Agranulocytosis secondary to cancer chemotherapy; T45.1X5A - Adverse effect of antineoplastic and immunosuppressive drugs, initial encounter Assessment/Plan: His white blood count is minimally elevating since admission. Continue with reverse isolation/neutropenic precautions. Follow CBC daily (6) Anemia Assessment/Plan: B12 and folate levels were adequate. Iron stores were extremely low. We will start on liquid oral iron replacement. Follow CBC daily. Transfuse if hemoglobin under 7 or if under 8 with sx (7) Hypertension Assessment/Plan: BP celevated at 150-160 systolic. His home dose of Toprol every morning and Amlodipine every night has been resumed. Elevated blood pressure may also be from pain, and he is getting Dilaudid prn. (8) Chronic kidney disease Assessment/Plan: His baseline creatinine is approximately 1.3-1.5. Here he is improving slowly from BUN/creat at admission of 40/2.1>> 35/1.7 >> today 27/2.0. Continue IV fluids for maintenance. (9) Hyperlipidemia Assessment/Plan: Crestor is currently on hold in order to diminish the amount of tablets to take p.o. while he has esophagitis (10) COPD (chronic obstructive pulmonary disease) Assessment/Plan: Oertli not in exacerbation although he has a chronic cough that is wet. He has prn inhalers reordered - Current Meds Current Meds: Current Medications Generic Name Dose Route Start Last Admin Trade Name Freq PRN Reason Stop Dose Admin Albuterol 2.5 mg 04/30/20 10:54 04/30/20 19:55 INH 2.5 mg Q4HR PRN Administration Shortness of Air/Wheezing Amlodipine Besylate 5 mg 04/30/20 21:00 04/30/20 21:43 Norvasc PO 5 mg HS EMILY Administration Aspirin 81 mg 05/01/20 09:00 05/01/20 08:17 [facility] Aspirin PO 81 mg DAILY EMILY Administration Budesonide 0.5 mg 04/30/20 07:00 05/01/20 09:38 Pulmicort INH Not Given RTBID EMILY Ferrous Sulfate 300 mg 05/01/20 12:00 05/01/20 11:36 Feosol Liquid PO 300 mg DAILYWM EMILY Administration Formoterol Fumarate 20 mcg 04/30/20 07:00 05/01/20 09:38 Perforomist INH Not Given RTBID EMILY Hydromorphone HCl 0.5 mg 04/30/20 19:26 05/01/20 08:15 Dilaudid Inj Syringe IVP 0.5 mg Q2H PRN Administration PAIN Dextrose/Sodium Chloride 1,000 mls @ 125 mls/hr 04/29/20 18:00 05/01/20 03:33 D5ns IV 125 mls/hr .Q8H EMILY Administration Fluconazole 100 mls @ 100 mls/hr 05/01/20 09:00 05/01/20 10:04 Diflucan 200 Mg/100 Ml IV 05/08/20 08:59 100 mls/hr DAILY EMILY Administration Magnesium Sulfate 2 gm in 50 mls @ 25 mls/hr 05/01/20 10:30 05/01/20 11:27 Magnesium Sulfate IV 05/01/20 13:30 25 mls/hr ONCE EMILY Administration Lorazepam 0.5 mg 04/29/20 20:21 04/30/20 19:39 Ativan Inj (Vial) IVP 0.5 mg Q6H PRN Administration Nausea / Vomiting Metoprolol Succinate 25 mg 04/30/20 11:00 05/01/20 08:17 Toprol Xl PO 25 mg DAILY EMILY Administration Morphine Sulfate 2 mg 04/30/20 00:32 04/30/20 14:15 Morphine (Carpuject) IVP 2 mg Q4HR PRN Administration PAIN Ondansetron HCl 4 mg 04/30/20 11:30 05/01/20 10:53 Zofran Inj IVP 4 mg 0800,1130,1700 EMILY Administration Pantoprazole Sodium 40 mg 05/01/20 07:00 05/01/20 06:28 Protonix PO 40 mg QDAC EMILY Administration Sodium Chloride 10 ml 04/29/20 20:17 04/30/20 19:39 Normal Saline Flush 0.9% IVP 10 ml PRN PRN Administration NEEDED PER PROVIDER ORDERS Sodium Chloride 10 ml 04/30/20 01:00 05/01/20 08:15 Normal Saline Flush 0.9% IVP 10 ml 0100,0900,1700 EMILY Administration Sodium Chloride 20 ml 04/30/20 09:16 04/30/20 09:00 Normal Saline Flush 0.9% IVP 20 ml PRN PRN Administration After Blood Draw Sucralfate 1 gm 05/01/20 11:00 05/01/20 10:53 Carafate PO 1 gm 0700,1100,1600,2200 EMILY Administration - Lab Result Fish Bone Diagrams: 05/01/20 04:40 05/01/20 04:40 - Additional Planning My Orders: My Active Orders 04/30/20 10:45 Miscellaenous Nursing Order [RC] QSHIFT 04/30/20 10:48 Prochlorperazine Inj [Compazine Inj] 10 mg IVP Q6HR PRN 04/30/20 10:54 Albuterol 2.5 mg INH Q4HR PRN 04/30/20 11:00 Nutrition Consult [CONS] Routine Metoprolol Succinate [Toprol Xl] 25 mg PO DAILY 04/30/20 11:30 Ondansetron Inj [Zofran Inj] 4 mg IVP 0800,1130,1700 04/30/20 Dinner Clear Liquid Diet [DIET] 04/30/20 21:00 amLODIPine [Norvasc] 5 mg PO HS 05/01/20 07:00 Pantoprazole [Protonix] 40 mg PO QDAC 05/01/20 09:00 Aspirin Chewable [[facility] Aspirin] 81 mg PO DAILY 05/01/20 10:30 Magnesium Sulfate 2 Gram [Magnesium Sulfate] 2 gm in 50 ml IV ONCE 05/01/20 11:00 Sucralfate [Carafate] 1 gm PO 0700,1100,1600,2200 05/01/20 12:00 Ferrous Sulfate Liquid [Feosol Liquid] 300 mg PO DAILYWM Subjective - Subjective Patient Reports: Resting Comfortably, Pain (Still has significant burning pain in the epigastrium when he takes in clear liquids.) Objective Vital Signs: Vital Signs - 24 hr 04/30/20 04/30/20 04/30/20 15:49 19:56 23:27 Temperature 36.4 C L 37.5 C Heart Rate 103 H Heart Rate [ 103 H 119 H Brachial] Respiratory 16 16 24 Rate Blood Pressure 122/54 L 163/71 H [Left Brachial artery] O2 Saturation 97 93 05/01/20 05/01/20 08:00 09:20 Temperature 36.7 C Heart Rate 108 H Heart Rate [ 109 H Brachial] Respiratory 20 20 Rate Blood Pressure 150/67 H [Left Brachial artery] O2 Saturation 94 Oxygen O2 Source Room air I&O (Last 24 Hrs): Intake and Output Totals x24h 04/29/20 04/30/20 05/01/20 23:59 23:59 23:59 Intake Total 1000 3250 1162.5 Output Total 750 250 Balance 1000 2500 912.5 General: Alert HEENT: Mucous membr. moist/pink, Other Neck: Supple, No JVD Neuro: Alert, Other Cardiovascular: Regular rate, No murmurs Respiratory: No respiratory distress, Breath sounds nml Abdomen: Normal bowel sounds, Soft Extremities: No edema - Results Results: Laboratory Results WBC 0.5 x10^3/uL (4.8-10.8) L* 05/01/20 04:40 RBC 2.34 10^6/uL (4.70-6.10) L 05/01/20 04:40 Hgb 7.5 g/dL (14.0-18.0) L 05/01/20 04:40 Hct 22.6 % (42.0-52.0) L 05/01/20 04:40 MCV 96.6 fL (80.0-94.0) H 05/01/20 04:40 MCH 32.1 pg (27.0-31.0) H 05/01/20 04:40 MCHC 33.2 g/dL (32.0-36.0) 05/01/20 04:40 RDW 12.9 % (12.0-15.0) 05/01/20 04:40 Plt Count 86 10^3/uL (130-450) L 05/01/20 04:40 MPV 10.3 fL (7.4-11.4) 05/01/20 04:40 Neut # (Auto) 0.2 10^3/uL (1.5-6.6) L* 05/01/20 04:40 Lymph # (Auto) 0.0 10^3/uL (1.5-3.5) L 05/01/20 04:40 [place] # (Auto) 0.3 10^3/uL (0.0-1.0) 05/01/20 04:40 Eos # (Auto) 0.0 10^3/uL (0.0-0.7) 05/01/20 04:40 Baso # (Auto) 0.0 10^3/uL (0.0-0.1) 05/01/20 04:40 Absolute Nucleated RBC 0.00 x10^3/uL 05/01/20 04:40 Total Counted 50 04/29/20 14:51 Band Neuts % (Manual) Not Reportable 05/01/20 04:40 Abnorm Lymph % (Manual) Not Reportable 05/01/20 04:40 Nucleated RBC % 0.0 /100WBC 05/01/20 04:40 Neutrophils # (Manual) Not Reportable 05/01/20 04:40 Lymphocytes # (Manual) Not Reportable 05/01/20 04:40 Monocytes # (Manual) Not Reportable 05/01/20 04:40 Eosinophils # (Manual) Not Reportable 05/01/20 04:40 Basophils # (Manual) Not Reportable 05/01/20 04:40 Differential Comment MANUAL DIFFERENTIAL 04/29/20 14:51 Manual Slide Review Indicated 04/30/20 09:00 Platelet Estimate DECREASED (<130,000) (NORMAL) 05/01/20 04:40 Platelet Morphology NORMAL APPEARANCE (NORMAL) 05/01/20 04:40 RBC Morph Micro Appear NORMAL APPEARANCE (NORMAL) 05/01/20 04:40 PT 13.4 secs (9.9-12.6) H 04/29/20 14:50 INR 1.2 (0.8-1.2) 04/29/20 14:50 Sodium 141 mmol/L (135-145) 05/01/20 04:40 Potassium 4.2 mmol/L (3.5-5.0) 05/01/20 04:40 Chloride 115 mmol/L (101-111) H 05/01/20 04:40 Carbon Dioxide 18 mmol/L (21-32) L 05/01/20 04:40 Anion Gap 8.0 (6-13) 05/01/20 04:40 BUN 27 mg/dL (6-20) H 05/01/20 04:40 Creatinine 2.0 mg/dL (0.6-1.2) H 05/01/20 04:40 Estimated GFR (MDRD) 33 (>89) L 05/01/20 04:40 Glucose 127 mg/dL (70-100) H 05/01/20 04:40 Calcium 7.9 mg/dL (8.5-10.3) L 05/01/20 04:40 Magnesium 1.6 mg/dL (1.7-2.8) L 05/01/20 04:40 Iron 6 ug/dL (45-182) L 05/01/20 04:40 TIBC 162 ug/dL (250-450) L 05/01/20 04:40 % Saturation 4 % (20-50) L 05/01/20 04:40 Transferrin 116 mg/dL (180-329) L 05/01/20 04:40 Total Bilirubin 0.9 mg/dL (0.2-1.0) 05/01/20 04:40 Direct Bilirubin 0.4 mg/dL (0.1-0.5) 05/01/20 04:40 AST 40 IU/L (10-42) 05/01/20 04:40 ALT 183 IU/L (10-60) H 05/01/20 04:40 Alkaline Phosphatase 199 IU/L (42-121) H 05/01/20 04:40 Total Protein 5.5 g/dL (6.7-8.2) L 05/01/20 04:40 Albumin 2.4 g/dL (3.2-5.5) L 05/01/20 04:40 Globulin 3.1 g/dL (2.1-4.2) 05/01/20 04:40 Albumin/Globulin Ratio 0.8 (1.0-2.2) L 04/29/20 14:51 Vitamin B12 1241 pg/mL (180-914) H 05/01/20 04:40 Folate 11.24 ng/mL (5.90 - >24.8) 05/01/20 04:40 SARS-CoV-2 (PCR) NOT DETECTED 04/28/20 20:15
[2020-05-01] MEDS: MORPHINE 2 MG/ML CARPUJECT IVP PRN (11:50)
[2020-05-01] MEDS: PROCHLORPERAZINE 10 MG/2 ML VIAL IVP SCH (18:27)
[2020-05-01] MEDS: TPN (CLINIMIX E 5/15) 2,000 ML with MULTIVITAMIN 10 ML, TRACE ELEMENTS V CONC 1 ML IV SCH ×3 (18:27)
[2020-05-01] MEDS: amLODIPine 5 MG TABLET PO SCH (21:25)
[2020-05-01] MEDS: CHLORHEXIDINE GLUCONATE 15 ML UDC PO SCH (21:26)
[2020-05-01] MEDS: PANTOPRAZOLE 40 MG VIAL IV SCH (21:27)
[2020-05-01] MEDS: FAT EMULSION 20% 250 ML IV SCH (21:27)
[2020-05-02] MEDS: HYDROmorphone 0.5 MG/0.5 ML SYRINGE IVP PRN ×4 (01:05→17:18)
[2020-05-02] MEDS: SODIUM CHLORIDE FLUSH 0.9% 10 ML SYRINGE IVP SCH ×2 (01:05→17:08)
[2020-05-02] MEDS: PROCHLORPERAZINE 10 MG/2 ML VIAL IVP SCH ×4 (02:02→17:17)
[2020-05-02] MEDS: SODIUM CHLORIDE FLUSH 0.9% 10 ML SYRINGE IVP PRN ×2 (05:31→21:48)
[2020-05-02 05:41] LABS: BASOPHILS % (AUTO) 1.6 %; EOSINOPHILS % (AUTO) 0.8 %; HGB - HEMOGLOBIN 7.3 g/dL (14.0-18.0); MEAN CORPUSCULAR HEMOGLOBIN 31.6 pg (27.0-31.0); MEAN CORPUSCULAR HGB CONC 32.2 g/dL (32.0-36.0); MEAN CORPUSCULAR VOLUME 98.3 fL (80.0-94.0); MEAN PLATELET VOLUME 10.6 fL (7.4-11.4); MONOCYTES % (AUTO) 20.8 %; NEUTROPHILS % (AUTO) 70.4 %; PLT - PLATELET COUNT 86 10^3/uL (130-450); RED BLOOD COUNT 2.31 10^6/uL (4.70-6.10); RED CELL DISTRIBUTION WIDTH 13.1 % (12.0-15.0)
[2020-05-02] MEDS: DEXTROSE 5%-0.9% NACL 1,000 ML IV SCH ×3 (05:41→17:45)
[2020-05-02 05:44] LABS: WHITE BLOOD COUNT 1.3 x10^3/uL (4.8-10.8)
[2020-05-02 05:46] LABS: ABNORMAL LYMPHS % (MANUAL) 0 %
[2020-05-02 05:53] LABS: ALBUMIN 2.3 g/dL (3.2-5.5); ALBUMIN/GLOBULIN RATIO 0.7 (1.0-2.2); BILIRUBIN,TOTAL 0.9 mg/dL (0.2-1.0); CALCIUM 8.1 mg/dL (8.5-10.3); MAGNESIUM 2.1 mg/dL (1.7-2.8); PHOSPHORUS 2.5 mg/dL (2.5-4.6); TOTAL PROTEIN 5.5 g/dL (6.7-8.2)
[2020-05-02 06:09] LABS: BAND NEUTROPHILS % (MANUAL) 4 %; BASOPHILS % (MANUAL) 1 %; LYMPHOCYTES # (MANUAL) 0.2 10^3/uL (1.5-3.5); LYMPHOCYTES % (MANUAL) 12 %; METAMYELOCYTES % (MANUAL) 3 %; MONOCYTES # (MANUAL) 0.2 10^3/uL (0.0-1.0); MYELOCYTES % (MANUAL) 3 %
[2020-05-02] MEDS: SUCRALFATE 1 GM/10 ML UDC PO SCH ×4 (06:09→21:48)
[2020-05-02 06:12] LABS: DIFFERENTIAL COMMENT MANUAL DIFFERENTIAL; PLATELET ESTIMATE, MANUAL DECREASED (<130,000) (NORMAL); PLATELET MORPHOLOGY NORMAL APPEARANCE (NORMAL); RBC MORPHOLOGY (MULTIPLE) 1+ MICROCYTOSIS (NORMAL)
[2020-05-02] MEDS: IPRATROPIUM/ALBUTEROL 3 ML NEB INH PRN (07:35)
[2020-05-02] MEDS: BUDESONIDE 0.5 MG/2 ML NEB INH SCH ×2 (07:35→19:52)
[2020-05-02] MEDS: FORMOTEROL FUMARATE NEB 20 MCG/2 ML INH SCH ×2 (07:35→19:52)
[2020-05-02] MEDS: FERROUS SULFATE 300 MG/5 ML UDC PO SCH (08:20)
[2020-05-02] MEDS: ONDANSETRON 4 MG/2 ML VIAL IVP SCH ×3 (08:20→17:07)
[2020-05-02] MEDS: CHLORHEXIDINE GLUCONATE 15 ML UDC PO SCH ×2 (08:27→21:47)
[2020-05-02] MEDS: FLUCONAZOLE 200 MG/100 ML 100 ML IV SCH (08:34)
[2020-05-02] MEDS: PANTOPRAZOLE 40 MG VIAL IV SCH ×2 (08:35→21:48)
[2020-05-02] MEDS: METOPROLOL SUCCINATE 25 MG TABLET PO SCH (08:35)
--- NOTE | 2020-05-02 08:46 | PROVIDER PROGRESS NOTE ---
Assessment/Plan - Problem List (1) Intractable nausea and vomiting Assessment/Plan: He has had no further vomiting since the first day here, still gets intermittent nausea. Continue with scheduled and alternating Zofran and Compazine. Continue clear liquid diet (2) Esophagitis Assessment/Plan: CT abdomen and chest showed distal esophageal wall thickening and improvement in things like lymph nodes in the area, compared to a CT report from about 1 week ago done at [facility] Continue with IV Protonix twice daily and sucralfate p.o. for coating the m ucosa. Continue IV fluconazole for possible Isabel esophagitis, given his neutropenia Continue with clear liquid diet. He continues to need narcotics for pain control. Was offered to transfer for EGD to [facility] but declined it and said he would like to just wait and see if his symptoms cassia as he is further away from his last chemo and radiation. (3) Esophageal cancer Assessment/Plan: He finished chemo and radiation approximately a week ago. He was extremely neutropenic at admission with WBC 0.4. The white blood count is improved to 1.5 today. Continue neutropenic precautions. He can be OOB, can take a shower. Will order PT to start tomorrow, another day of tpn will help his energy (4) Elevated LFTs Assessment/Plan: These are all improving since admission, they were presumably caused by his ch emotherapy (5) Neutropenia Qualifiers: Neutropenia type: secondary to cancer chemotherapy Qualified Code(s): D70.1 - Agranulocytosis secondary to cancer chemotherapy; T45.1X5A - Adverse effect of antineoplastic and immunosuppressive drugs, initial encounter Assessment/Plan: As above in #3 (6) Anemia Assessment/Plan: Hemoglobin has dropped from 8.9 at admission to 7.3 today. Was anemic at admission, presumably from malignancy plus chemotherapy. Yesterday labs showed normal B12 and folate levels but very low iron stores. Oral iron, in liquid form was ordered to start, for replacement We will order blood transfusion if Hgb is under 7, it will need to be irradiated and special precautions. Follow H/H every 12 hours (7) Hypertension Assessment/Plan: BP systolic is 160-170. I suspect part of the poor BP control is from pain His morning metoprolol and evening amlodipine doses have been resumed. (8) Chronic kidney disease Assessment/Plan: Creatinine has plateaued at 2.0. Avoid nephrotoxins (9) COPD (chronic obstructive pulmonary disease) Assessment/Plan: He would like to take his own Performist/Pulmicort, this has been relayed to the pharmacy. Pharmacy ([facility]) stated his home med inhaler cannot be used here, since we have the hospital substitute available. Will order Mucinex and Robitussin because of his wet cough. Will order chest x-ray to evaluate for CHF or infiltrate. Suspect part of this wet cough is from atelectasis because he is a gets pain in the epigastrium when he takes a deep breath or coughs. Will order incentive spirometry. (10) Hyperlipidemia Assessment/Plan: His statin med is on hold in order to decrease gastric pill burden - Current Meds Current Meds: Current Medications Generic Name Dose Route Start Last Admin Trade Name Freq PRN Reason Stop Dose Admin Albuterol 2.5 mg 04/30/20 10:54 04/30/20 19:55 INH 2.5 mg Q4HR PRN Administration Shortness of Air/Wheezing Albuterol/Ipratropium 3 ml 04/29/20 21:08 05/02/20 07:35 Duoneb INH 3 ml Q4HR PRN Administration Wheezing Amlodipine Besylate 5 mg 04/30/20 21:00 05/01/20 21:25 Norvasc PO 5 mg HS EMILY Administration Budesonide 0.5 mg 04/30/20 07:00 05/02/20 07:35 Pulmicort INH 0.5 mg RTBID EMILY Administration Chlorhexidine Gluconate 15 ml 05/01/20 21:00 05/02/20 08:27 Peridex PO 15 ml BID EMILY Administration Ferrous Sulfate 300 mg 05/01/20 12:00 05/02/20 08:20 Feosol Liquid PO 300 mg DAILYWM EMIYL Administration Formoterol Fumarate 20 mcg 04/30/20 07:00 05/02/20 07:35 Perforomist INH 20 mcg RTBID EMILY Administration Hydromorphone HCl 0.5 mg 04/30/20 19:26 05/02/20 05:30 Dilaudid Inj Syringe IVP 0.5 mg Q2H PRN Administration PAIN Fluconazole 100 mls @ 100 mls/hr 05/01/20 09:00 05/02/20 08:34 Diflucan 200 Mg/100 Ml IV 05/08/20 08:59 100 mls/hr DAILY EMILY Administration Multivitamins 10 ml/ Chromium/ 2,011 mls @ 83 mls/hr 05/01/20 19:00 05/01/20 18:27 Copper/Manganese/Seleni/Zn 1 IV 50 mls/hr ml/ Amino Ac/Electrol/Dextrose 1900 EMILY Administration /Calcium Fat Emulsion Intravenous 250 mls @ 21 mls/hr 05/01/20 21:00 05/01/20 21:27 Intralipid 20% IV 21 mls/hr 2100 EMILY Administration Lorazepam 0.5 mg 04/29/20 20:21 04/30/20 19:39 Ativan Inj (Vial) IVP 0.5 mg Q6H PRN Administration Nausea / Vomiting Metoprolol Succinate 25 mg 04/30/20 11:00 05/02/20 08:35 Toprol Xl PO 25 mg DAILY EMILY Administration Ondansetron HCl 4 mg 04/30/20 11:30 05/02/20 08:20 Zofran Inj IVP 4 mg 0800,1130,1700 EMILY Administration Pantoprazole Sodium 40 mg 05/01/20 21:00 05/02/20 08:35 Protonix IV 40 mg BID EMILY Administration Prochlorperazine Edisylate 10 mg 05/01/20 18:00 05/02/20 02:03 Compazine Inj IVP Not Given Q6HR EMILY Sodium Chloride 10 ml 04/29/20 20:17 05/02/20 05:31 Normal Saline Flush 0.9% IVP 10 ml PRN PRN Administration NEEDED PER PROVIDER ORDERS Sodium Chloride 10 ml 04/30/20 01:00 05/02/20 01:05 Normal Saline Flush 0.9% IVP 10 ml 0100,0900,1700 EMILY Administration Sucralfate 1 gm 05/01/20 11:00 05/02/20 06:09 Carafate PO 1 gm 0700,1100,1600,2200 EMILY Administration - Lab Result Fish Bone Diagrams: 05/02/20 05:25 05/02/20 05:25 - Additional Planning My Orders: My Active Orders 05/01/20 11:00 Sucralfate [Carafate] 1 gm PO 0700,1100,1600,2200 05/01/20 12:00 Ferrous Sulfate Liquid [Feosol Liquid] 300 mg PO DAILYWM 05/01/20 14:29 Blood Glucose Checks - NPO [RC] 0600,1200,1800,0000 Daily Weight [RC] DAILY 05/01/20 18:00 Prochlorperazine Inj [Compazine Inj] 10 mg IVP Q6HR 05/01/20 19:00 Multivitamin [Infuvite] 10 ml Trace Elements V Conc [Multitrace-5 Conc Vial] 1 ml TPN (Clinimix E 5/15) [Clinimix E 5%-15% Solution] 2,000 ml IV 1900 05/01/20 21:00 Chlorhexidine [Peridex] 15 ml PO BID Fat Emulsion 20% [Intralipid 20%] 250 ml IV 2100 Pantoprazole [Protonix] 40 mg IV BID 05/02/20 08:44 Dextrose 5%-0.9% NaCl [D5ns] 1,000 ml IV 100 mls/hr 05/03/20 05:00 MAGNESIUM [CHEM] DAILYLAB PHOSPHORUS [CHEM] DAILYLAB PREALBUMIN [CHEM] Routine TRIGLYCERIDES [CHEM] DAILYLAB 05/04/20 05:00 COMPREHENSIVE METABOLIC PANEL [CHEM] Routine MAGNESIUM [CHEM] Routine PHOSPHORUS [CHEM] Routine PREALBUMIN [CHEM] Routine TRIGLYCERIDES [CHEM] Routine 05/06/20 05:00 COMPREHENSIVE METABOLIC PANEL [CHEM] Routine MAGNESIUM [CHEM] Routine PHOSPHORUS [CHEM] Routine PREALBUMIN [CHEM] Routine TRIGLYCERIDES [CHEM] Routine 05/09/20 05:00 CBC - COMP BLD CT W/AUTO DIFF [HEME] Routine COMPREHENSIVE METABOLIC PANEL [CHEM] Routine MAGNESIUM [CHEM] Routine PHOSPHORUS [CHEM] Routine PREALBUMIN [CHEM] Routine PT WITH INR [COAG] Routine TRIGLYCERIDES [CHEM] Routine Subjective - Subjective Patient Reports: Feeling Better (Has more energy since TPN started) Objective Vital Signs: Vital Signs - 24 hr 05/01/20 05/01/20 05/02/20 09:20 15:50 01:00 Temperature 36.7 C 37.0 C Heart Rate 108 H Heart Rate [ 105 H 103 H Brachial] Respiratory 20 18 18 Rate Blood Pressure 151/77 H 161/85 H [Left Brachial artery] O2 Saturation 98 100 05/02/20 05/02/20 07:35 08:00 Temperature 37.0 C Heart Rate 109 H Heart Rate [ 107 H Brachial] Respiratory 14 24 Rate Blood Pressure 171/83 H [Left Brachial artery] O2 Saturation 97 Oxygen O2 Source Nasal cannula I&O (Last 24 Hrs): Intake and Output Totals x24h 04/30/20 05/01/20 05/02/20 23:59 23:59 23:59 Intake Total 3250 2902.5 1079 Output Total 750 500 900 Balance 2500 2402.5 179 General: Alert (Is much more animated today then yesterday), Oriented x3 HEENT: Other (Wearing his galsses) Neck: Supple, No JVD Neuro: Alert, Non Focal Cardiovascular: Regular rate, No murmurs Respiratory: Rhonchi, Other (is tachypneic with speaking) Abdomen: Normal bowel sounds, Soft, Other (Mildly distended with hypertympany) Extremities: No edema - Results Results: Laboratory Results WBC 1.3 x10^3/uL (4.8-10.8) L* 05/02/20 05:25 RBC 2.31 10^6/uL (4.70-6.10) L 05/02/20 05:25 Hgb 7.3 g/dL (14.0-18.0) L 05/02/20 05:25 Hct 22.7 % (42.0-52.0) L 05/02/20 05:25 MCV 98.3 fL (80.0-94.0) H 05/02/20 05:25 MCH 31.6 pg (27.0-31.0) H 05/02/20 05:25 MCHC 32.2 g/dL (32.0-36.0) 05/02/20 05:25 RDW 13.1 % (12.0-15.0) 05/02/20 05:25 Plt Count 86 10^3/uL (130-450) L 05/02/20 05:25 MPV 10.6 fL (7.4-11.4) 05/02/20 05:25 Neut # (Auto) Not Reportable 05/02/20 05:25 Lymph # (Auto) Not Reportable 05/02/20 05:25 [place] # (Auto) Not Reportable 05/02/20 05:25 Eos # (Auto) Not Reportable 05/02/20 05:25 Baso # (Auto) Not Reportable 05/02/20 05:25 Absolute Nucleated RBC Not Reportable 05/02/20 05:25 Total Counted 100 05/02/20 05:25 Band Neuts % (Manual) 4 % (0-10) 05/02/20 05:25 Abnorm Lymph % (Manual) 0 % 05/02/20 05:25 Metamyelocytes % 3 % (-0) H 05/02/20 05:25 Myelocytes % 3 % (-0) H 05/02/20 05:25 Nucleated RBC % Not Reportable 05/02/20 05:25 Neutrophils # (Manual) 0.8 10^3/uL (1.5-6.6) L 05/02/20 05:25 Lymphocytes # (Manual) 0.2 10^3/uL (1.5-3.5) L 05/02/20 05:25 Monocytes # (Manual) 0.2 10^3/uL (0.0-1.0) 05/02/20 05:25 Eosinophils # (Manual) 0.0 10^3/uL (0-0.7) 05/02/20 05:25 Basophils # (Manual) 0.0 10^3/uL (0-0.1) 05/02/20 05:25 Differential Comment MANUAL DIFFERENTIAL 05/02/20 05:25 Manual Slide Review Indicated 04/30/20 09:00 WBC Morphology NORMAL APPEARANCE (NORMAL) 05/02/20 05:25 Platelet Estimate DECREASED (<130,000) (NORMAL) 05/02/20 05:25 Platelet Morphology NORMAL APPEARANCE (NORMAL) 05/02/20 05:25 RBC Morph Micro Appear 1+ MICROCYTOSIS (NORMAL) 05/02/20 05:25 PT 13.4 secs (9.9-12.6) H 04/29/20 14:50 INR 1.2 (0.8-1.2) 04/29/20 14:50 Sodium 138 mmol/L (135-145) 05/02/20 05:25 Potassium 4.1 mmol/L (3.5-5.0) 05/02/20 05:25 Chloride 113 mmol/L (101-111) H 05/02/20 05:25 Carbon Dioxide 19 mmol/L (21-32) L 05/02/20 05:25 Anion Gap 6.0 (6-13) 05/02/20 05:25 BUN 31 mg/dL (6-20) H 05/02/20 05:25 Creatinine 2.0 mg/dL (0.6-1.2) H 05/02/20 05:25 Estimated GFR (MDRD) 33 (>89) L 05/02/20 05:25 Glucose 153 mg/dL (70-100) H 05/02/20 05:25 POC Whole Bld Glucose 130 mg/dL (70 - 100) H 05/02/20 01:07 Calcium 8.1 mg/dL (8.5-10.3) L 05/02/20 05:25 Phosphorus 2.5 mg/dL (2.5-4.6) 05/02/20 05:25 Magnesium 2.1 mg/dL (1.7-2.8) 05/02/20 05:25 Iron 6 ug/dL (45-182) L 05/01/20 04:40 TIBC 162 ug/dL (250-450) L 05/01/20 04:40 % Saturation 4 % (20-50) L 05/01/20 04:40 Transferrin 116 mg/dL (180-329) L 05/01/20 04:40 Total Bilirubin 0.9 mg/dL (0.2-1.0) 05/02/20 05:25 Direct Bilirubin 0.4 mg/dL (0.1-0.5) 05/01/20 04:40 AST 20 IU/L (10-42) 05/02/20 05:25 ALT 121 IU/L (10-60) H 05/02/20 05:25 Alkaline Phosphatase 153 IU/L (42-121) H 05/02/20 05:25 Total Protein 5.5 g/dL (6.7-8.2) L 05/02/20 05:25 Albumin 2.3 g/dL (3.2-5.5) L 05/02/20 05:25 Globulin 3.2 g/dL (2.1-4.2) 05/02/20 05:25 Albumin/Globulin Ratio 0.7 (1.0-2.2) L 05/02/20 05:25 Prealbumin 14 mg/dL (18-45) L 05/02/20 05:25 Triglycerides 140 mg/dL (-149) 05/02/20 05:25 Vitamin B12 1241 pg/mL (180-914) H 05/01/20 04:40 Folate 11.24 ng/mL (5.90 - >24.8) 05/01/20 04:40 SARS-CoV-2 (PCR) NOT DETECTED 04/28/20 20:15
[2020-05-02] MEDS ORDERED: PHENOL THROAT SPRAY 177 ML MM PRN (10:02)
[2020-05-02] MEDS ORDERED: guaiFENesin 100 MG/5 ML UDC PO PRN (10:08)
--- NOTE | 2020-05-02 10:38 | XRAY Report ---
PROCEDURE: Chest 1 View X-Ray INDICATIONS: Wet cough, Hx COPD, eval for CHF TECHNIQUE: One view of the chest was acquired. COMPARISON: CT of the chest dated 04/30/2020 FINDINGS: Surgical changes and devices: Right Port-A-Cath tip is projected over the cavoatrial junction, as exp ected. Lungs and pleura: No pleural effusions or pneumothorax. A probable nipple shadow is projected over t he right lung base. The lungs are otherwise clear. Mediastinum: Mediastinal contours appear normal. Heart size is normal. Bones and chest wall: No suspicious bony lesions. Overlying soft tissues appear unremarkable. IMPRESSION: No acute cardiopulmonary findings. Probable nipple shadow as above. Nipple markers could be used on f uture studies to ensure characterization of this finding. Reviewed by: Judy Burch MD on 05/02/2020 10:36 AM [facility] Approved by: Judy Burch MD on 05/02/2020 10:36 AM [facility] Station ID: [id number]
[2020-05-02] MEDS: guaiFENesin 600 MG TABLET PO SCH ×2 (11:29→21:47)
[2020-05-02] MEDS ORDERED: LIDOCAINE VISCOUS 2% 15 ML UDC MM PRN (13:42)
[2020-05-02] MEDS: TPN (CLINIMIX E 5/15) 2,000 ML with MULTIVITAMIN 10 ML, TRACE ELEMENTS V CONC 1 ML IV SCH ×3 (19:04)
[2020-05-02] MEDS: amLODIPine 5 MG TABLET PO SCH (21:47)
[2020-05-02] MEDS: FAT EMULSION 20% 250 ML IV SCH (21:47)
[2020-05-03] MEDS: SODIUM CHLORIDE FLUSH 0.9% 10 ML SYRINGE IVP SCH ×2 (03:11→11:34)
[2020-05-03] MEDS: PROCHLORPERAZINE 10 MG/2 ML VIAL IVP SCH ×3 (03:11→12:51)
[2020-05-03] MEDS: DEXTROSE 5%-0.9% NACL 1,000 ML IV SCH ×2 (03:40→13:25)
[2020-05-03 05:40] LABS: BASOPHILS % (AUTO) 1.1 %; EOSINOPHILS % (AUTO) 0.4 %; HGB - HEMOGLOBIN 7.4 g/dL (14.0-18.0); LYMPHOCYTES % (AUTO) 5.3 %; MEAN PLATELET VOLUME 10.7 fL (7.4-11.4); MONOCYTES % (AUTO) 12.5 %; NEUTROPHILS % (AUTO) 78.4 %; PLT - PLATELET COUNT 93 10^3/uL (130-450); RED BLOOD COUNT 2.31 10^6/uL (4.70-6.10); RED CELL DISTRIBUTION WIDTH 13.1 % (12.0-15.0); WHITE BLOOD COUNT 2.6 x10^3/uL (4.8-10.8)
[2020-05-03 05:52] LABS: ABNORMAL LYMPHS % (MANUAL) 0 %
[2020-05-03 05:59] LABS: CREATININE 1.8 mg/dL (0.6-1.2); MAGNESIUM 1.8 mg/dL (1.7-2.8); PHOSPHORUS 2.4 mg/dL (2.5-4.6)
[2020-05-03] MEDS: SUCRALFATE 1 GM/10 ML UDC PO SCH ×2 (06:00→11:35)
[2020-05-03 06:13] LABS: BAND NEUTROPHILS % (MANUAL) 3 %; LYMPHOCYTES # (MANUAL) 0.2 10^3/uL (1.5-3.5); LYMPHOCYTES % (MANUAL) 8 %; MONOCYTES # (MANUAL) 0.2 10^3/uL (0.0-1.0); MYELOCYTES % (MANUAL) 3 %; RBC MORPHOLOGY (MULTIPLE) 1+ MICROCYTOSIS (NORMAL)
[2020-05-03 06:14] LABS: DIFFERENTIAL COMMENT MANUAL DIFFERENTIAL; PLATELET ESTIMATE, MANUAL DECREASED (<130,000) (NORMAL); PLATELET MORPHOLOGY NORMAL APPEARANCE (NORMAL)
[2020-05-03] MEDS: BUDESONIDE 0.5 MG/2 ML NEB INH SCH (07:35)
[2020-05-03] MEDS: FORMOTEROL FUMARATE NEB 20 MCG/2 ML INH SCH (07:35)
[2020-05-03] MEDS: IPRATROPIUM/ALBUTEROL 3 ML NEB INH PRN (07:35)
[2020-05-03] MEDS: FERROUS SULFATE 300 MG/5 ML UDC PO SCH (08:33)
[2020-05-03] MEDS: ONDANSETRON 4 MG/2 ML VIAL IVP SCH ×2 (08:37→11:37)
[2020-05-03] MEDS: FLUCONAZOLE 200 MG/100 ML 100 ML IV SCH (08:40)
[2020-05-03] MEDS: CHLORHEXIDINE GLUCONATE 15 ML UDC PO SCH (08:40)
[2020-05-03] MEDS: HYDROmorphone 0.5 MG/0.5 ML SYRINGE IVP PRN ×3 (08:45→13:39)
[2020-05-03] MEDS ORDERED: SODIUM CHLORIDE FLUSH 0.9% 10 ML SYRINGE IVP PRN (10:11)
[2020-05-03] MEDS: guaiFENesin 600 MG TABLET PO SCH (11:04)
[2020-05-03] MEDS: METOPROLOL SUCCINATE 25 MG TABLET PO SCH (11:05)
[2020-05-03] MEDS: PANTOPRAZOLE 40 MG VIAL IV SCH (11:07)
--- NOTE | 2020-05-03 11:36 | DISCHARGE SUMMARY ---
Discharge Summary Admit Date: 04/29/20 Discharge Date: 05/03/20 Discharging Provider: Dr Phoebe Wiggins Primary Care Provider: Dr Aneudy Castle Code Status: Attempt Resuscitation Condition at Discharge: Poor Discharge Disposition: 02 Transfer Acute Care Hosp - [facility] History of Present Illness: From the admission H&P of Dr. Onofre Ghotrau: Patient is a 69-year-old white male with history of esophageal cancer who presented to the ED with intractable nausea vomiting and some diarrhea. For the past 5 or 6 weeks he has been undergoing chemo/radiation therapy for esophageal cancer. This was completed about a week ago. His cancer care is with [facility]. He needed 4 days of inpatient management at [facility] 1 week ago for N/V dehydration, but he has still been significantly nauseous with frequent vomitus daily. He has been to the emergency room at [facility] multiple times on account of this as well. Today he reported about 5 episodes of vomiting and 3 episodes of diarrhea. Consequently he is very weak and decided not to go to [facility], but to come to this ER (for the first time). His oral intake has been minimal due to vomiting. His creatinine upon work-up in the ED was 2.1. He denied chest pain, dyspnea or fever. He reports being cold, and he has epigastric abdominal pain which is intermittent. He lives with his . He normally walks without any walking aid, but lately his been requiring some assistance with personal care and grooming due to weakness. His CODE STATUS id Full Code. - HOSPITAL COURSE Hospital Course: (1) Intractable nausea and vomiting He was treated with iv Zofran q6h and iv Compazine q6h alternating and scheduled to control nausea and vomiting. Vomiting stopped but he was still nauseated and refused a lot of trials with a liquid diet. (2) Esophagitis CT abdomen and chest was done which showed a patent esophagus, distal esophageal wall thickening and improvement in enlarged lymph nodes in the area, compared to a CT report from about 1 week ago done at [facility]. He was treated with IV Protonix twice daily and sucralfate p.o. He was put on empiric IV fluconazole for possible Isabel esophagitis, given his neutropenia. A clear liquid diet was ordered. He continued to need narcotics for pain control. He was offered to transfer for specialist care to [facility], but declined it and said he would like to just wait and see if his symptoms abated as he was further away from his last chemo and radiation. His epigastric pain however became retrosternal burning pain with swallowing any liquids, and on the day of transfer, he was not even handling his saliva. He was accepted in transfer that day (and agreed to be transferred) to Hospitalist service and GI service agreeing to consult, and taken to the Oncology floor of [facility], where he was transported by ambulance. (3) Esophageal cancer He finished chemo and radiation approximately a week ago. He was extremely neutropenic at admission with WBC 0.4. The white blood count is improved 0.8>> 1.5. He was on neutropenic precautions. Because of his anorexia, he was started on peripheral iv tpn and transferred on this. (4) Elevated LFTs These were presumably caused by his chemotherapy, as per the [facility] discharge summary. Here, the LFTs slowly declined. (5) Neutropenia As above in #3 (6) Anemia Hemoglobin was 8.9 at admission, and as low as 7.3, presumably from malignancy plus chemotherapy. We followed H/H every 12 hours. His labs showed normal B12 and folate levels but very low iron stores. Oral iron, in liquid form was ordered to start, for replacement. (7) Hypertension BP systolic is 160-170, partly from pain. His morning metoprolol and evening amlodipine doses were resumed. (8) Chronic kidney disease Creatinine plateaued at 2.0. We avoided nephrotoxins and provided iv hydration. (9) COPD (chronic obstructive pulmonary disease) He had no wheezing but a wet cough, which was suspected to be from atelectasis because he got pain in the epigastrium when he took a deep breath or coughs. We ordered incentive spirometry, Mucinex and Robitussin. CXR showed no infiltrates or edema. (10) Hyperlipidemia His statin med was on hold in order to decrease gastric pill burden. - ALLERGIES Allergies/Adverse Reactions: Allergies Allergy/AdvReac Type Severity Reaction Status Date / Time prazosin Allergy Unknown Verified 04/29/20 13:29 atorvastatin AdvReac Unknown Verified 04/29/20 13:29 - MEDICATIONS Home Medications: Ambulatory Orders Medication Instructions Recorded Confirmed Albuterol Sulf [Ventolin Hfa 1 - 2 puffs INH Q4HR PRN 04/29/20 04/29/20 Inhaler] Aspirin Chewable [St Vishnu 81 mg PO DAILY 04/29/20 04/29/20 Aspirin] Budesonide/Formoterol Fumarate 1 puffs INH DAILY 04/29/20 04/29/20 [Symbicort 80-4.5 Mcg Inhaler] Metoclopramide [Reglan] 1 tab PO PRN PRN 04/29/20 04/29/20 Metoprolol Succinate [Toprol Xl] 25 mg PO DAILY 04/29/20 04/29/20 Pantoprazole [Protonix] 40 mg PO DAILY 04/29/20 04/29/20 Prochlorperazine [Compazine] 10 mg PO Q6H PRN 04/29/20 04/29/20 Rosuvastatin Calcium [Crestor] 20 mg PO DAILY 04/29/20 04/29/20 amLODIPine [Norvasc] 5 mg PO HS 04/29/20 04/29/20 - PHYSICAL EXAM AT DISCHARGE General Appearance: positive: Moderate distress Eyes Bilateral: positive: Normal inspection, EOMI ENT: positive: Other (saliva pooling in mouth) Neck: positive: Nml inspection, No JVD Respiratory: positive: Other (Scatrered rhonchi, no wheezing) Cardiovascular: positive: Regular rate & rhythm, No murmur Abdomen: positive: Nml bowel sounds, Other (Mild distension, no guarding or rebound, tender in epigastrium) Skin: positive: Warm, Dry, Pallor Extremities: positive: Non-tender, No pedal edema Neurologic/Psychiatric: positive: Oriented x3, Motor nml - LABS Result Diagrams: 05/03/20 05:10 05/03/20 05:10 - DIAGNOSTIC IMAGING Diagnostic Imaging Results: Final report reviewed - FOLLOW UP Follow Up: This will be determined after his hospitalization at [facility]. - TIME SPENT Time Spent in Discharge (Minutes): 60
--- NOTE | 2020-05-03 11:36 | Discharge Plan ---
Discharge Plan Problem Reviewed?: Yes Disposition: 02 Transfer Acute Care Hosp Condition: Poor No Smoking: If you smoke, Please STOP! Call for help. Follow-up with: Eldon Castle MD [Primary Care Provider] -
[2020-05-03 12:48] VITALS: BP 152/77
[2020-05-03] MEDS: LORazepam 2 MG/ML VIAL IVP PRN (13:39)
== END 2020-05-03 13:49 | disposition short-term general hospital (02) | DRG 369 ==
LOC: ED 13:03 → MS3 18:07 → MS2 05-01 19:58
PROVIDERS: ADMIT Internal Medicine; ATTEND Internal Medicine
PROC: 3E0336Z Introduction of Nutritional Substance into Peripheral Vein, Percutaneous Approach (ICD-10-PCS; principal; 2020-04-29)
DX: B37.81 Candidal esophagitis (principal); R11.2 Nausea with vomiting, unspecified; C15.9 Malignant neoplasm of esophagus, unspecified; D70.1 Agranulocytosis secondary to cancer chemotherapy; I12.9 Hypertensive chronic kidney disease with stage 1 through stage 4 chronic kidney disease, or unspecified chronic kidney disease; N18.9 Chronic kidney disease, unspecified; D64.81 Anemia due to antineoplastic chemotherapy; D63.0 Anemia in neoplastic disease; J43.9 Emphysema, unspecified; R79.89 Other specified abnormal findings of blood chemistry; T45.1X5A Adverse effect of antineoplastic and immunosuppressive drugs, initial encounter; Y92.531 Health care provider office as the place of occurrence of the external cause; R13.10 Dysphagia, unspecified; E78.5 Hyperlipidemia, unspecified; K21.9 Gastro-esophageal reflux disease without esophagitis; Z79.51 Long term (current) use of inhaled steroids; Z79.82 Long term (current) use of aspirin; Z79.899 Other long term (current) drug therapy; Z86.73 Personal history of transient ischemic attack (TIA), and cerebral infarction without residual deficits; Z87.891 Personal history of nicotine dependence; Z92.3 Personal history of irradiation; Z20.828 Contact with and (suspected) exposure to other viral communicable diseases
CPT/HCPCS: 36415; 71045; 71250; 74176; 80048; 80053; 80076; 82607; 82746; 83540; 83735; 84100; 84134; 84466; 84478; 85025; 85610; 94640; 96374; 96375; 99284; 99285; A9270; J1170; J2060; J2765; J3490; J7626; U0004; 82272; 85014

== ENCOUNTER 2020-05-03 13:50 | Outpatient (CLI) | payer MEDICARE, BC | END 2020-05-03 13:51 | disposition short-term general hospital (02) | LOC: EMS 13:50 | PROVIDERS: ATTEND Surgery | DX: R53.1 Weakness (principal); R13.10 Dysphagia, unspecified; R11.2 Nausea with vomiting, unspecified; D70.1 Agranulocytosis secondary to cancer chemotherapy; T45.1X5A Adverse effect of antineoplastic and immunosuppressive drugs, initial encounter; C15.9 Malignant neoplasm of esophagus, unspecified | CPT/HCPCS: A0425; A0426 ==

== ENCOUNTER 2020-09-17 15:12 | Outpatient (CLI) | payer MEDICARE, BC ==
[2020-09-17 19:50] LABS: HCT - HEMATOCRIT 34.9 % (42.0-52.0); HGB - HEMOGLOBIN 11.5 g/dL (14.0-18.0)
[2020-09-17 20:01] LABS: ALBUMIN 3.7 g/dL (3.2-5.5); CALCIUM 9.6 mg/dL (8.5-10.3); CREATININE 2.6 mg/dL (0.6-1.2); PHOSPHORUS 3.8 mg/dL (2.5-4.6)
== END 2020-09-17 15:13 | disposition home or self-care (01) ==
LOC: LAB.S 15:12
PROVIDERS: ATTEND Internal Medicine Nephrology
DX: I13.10 Hypertensive heart and chronic kidney disease without heart failure, with stage 1 through stage 4 chronic kidney disease, or unspecified chronic kidney disease (principal); N18.4 Chronic kidney disease, stage 4 (severe); D63.1 Anemia in chronic kidney disease
CPT/HCPCS: 36415; 80069; 81599; 83970; 85014; 85018

== ENCOUNTER 2020-09-18 08:00 | Outpatient (CLI) | payer MEDICARE, BC ==
[2020-09-18 20:28] LABS: CREATININE,URINE 98.9 mg/dL; PROTEIN/CREATININE RATIO,URINE 0.1 (<=0.2)
== END 2020-09-18 23:59 | disposition home or self-care (01) ==
LOC: LAB.R 08:00
PROVIDERS: ATTEND Internal Medicine Nephrology
DX: I12.9 Hypertensive chronic kidney disease with stage 1 through stage 4 chronic kidney disease, or unspecified chronic kidney disease (principal); N18.4 Chronic kidney disease, stage 4 (severe); D63.1 Anemia in chronic kidney disease
CPT/HCPCS: 82570; 84156

== ENCOUNTER 2021-01-11 16:03 | Outpatient (CLI) | payer MEDICARE, BC ==
[2021-01-11 20:09] LABS: HCT - HEMATOCRIT 34.1 % (42.0-52.0)
[2021-01-11 20:27] LABS: ALBUMIN 3.6 g/dL (3.2-5.5); CALCIUM 8.8 mg/dL (8.5-10.3); CREATININE 2.9 mg/dL (0.6-1.2); PHOSPHORUS 4.1 mg/dL (2.5-4.6); POTASSIUM 5.3 mmol/L (3.5-5.0)
[2021-01-12 16:56] LABS: CREATININE,URINE 109.4 mg/dL; PROTEIN/CREATININE RATIO,URINE 0.1 (<=0.2)
== END 2021-01-11 16:04 | disposition home or self-care (01) ==
LOC: LAB.S 16:03
PROVIDERS: ATTEND Internal Medicine Nephrology
DX: N18.6 End stage renal disease (principal); D63.1 Anemia in chronic kidney disease
CPT/HCPCS: 36415; 80069; 82570; 83970; 84156; 85014; 85018

== ENCOUNTER 2021-01-22 11:33 | Outpatient (CLI) | payer MEDICARE, BC ==
[2021-01-22 14:36] LABS: BASOPHILS % (AUTO) 0.7 %; EOSINOPHILS # (AUTO) 0.2 10^3/uL (0.0-0.7); EOSINOPHILS % (AUTO) 2.7 %; HGB - HEMOGLOBIN 11.1 g/dL (14.0-18.0); LYMPHOCYTES # (AUTO) 1.1 10^3/uL (1.5-3.5); LYMPHOCYTES % (AUTO) 18.2 %; MEAN CORPUSCULAR HEMOGLOBIN 32.5 pg (27.0-31.0); MEAN CORPUSCULAR HGB CONC 32.6 g/dL (32.0-36.0); MEAN CORPUSCULAR VOLUME 99.4 fL (80.0-94.0); MEAN PLATELET VOLUME 10.9 fL (7.4-11.4); MONOCYTES # (AUTO) 0.8 10^3/uL (0.0-1.0); MONOCYTES % (AUTO) 13.4 %; NEUTROPHILS # (AUTO) 3.9 10^3/uL (1.5-6.6); NEUTROPHILS % (AUTO) 64.7 %; PLT - PLATELET COUNT 184 10^3/uL (130-450); RED BLOOD COUNT 3.42 10^6/uL (4.70-6.10); RED CELL DISTRIBUTION WIDTH 12.7 % (12.0-15.0)
[2021-01-22 14:57] LABS: ALBUMIN 3.7 g/dL (3.2-5.5); ALBUMIN/GLOBULIN RATIO 1.1 (1.0-2.2); BILIRUBIN,TOTAL 0.7 mg/dL (0.2-1.0); CREATININE 2.8 mg/dL (0.6-1.2); POTASSIUM 5.3 mmol/L (3.5-5.0); TOTAL PROTEIN 7.2 g/dL (6.7-8.2)
== END 2021-01-22 11:34 | disposition home or self-care (01) ==
LOC: LAB.S 11:33
PROVIDERS: ATTEND Internal Medicine
DX: C15.5 Malignant neoplasm of lower third of esophagus (principal)
CPT/HCPCS: 36415; 80053; 85025

== ENCOUNTER 2021-03-31 10:36 | Outpatient (CLI) | payer MEDICARE, BC ==
[2021-03-31 15:10] LABS: HCT - HEMATOCRIT 35.8 % (42.0-52.0); HGB - HEMOGLOBIN 11.8 g/dL (14.0-18.0)
[2021-03-31 15:26] LABS: CREATININE,URINE 108.8 mg/dL; PROTEIN/CREATININE RATIO,URINE 0.3 (<=0.2)
[2021-03-31 15:27] LABS: ALBUMIN 3.8 g/dL (3.2-5.5); CALCIUM 9.2 mg/dL (8.5-10.3); CREATININE 2.7 mg/dL (0.6-1.2); PHOSPHORUS 3.4 mg/dL (2.5-4.6); POTASSIUM 5.7 mmol/L (3.5-5.0)
== END 2021-03-31 10:37 | disposition home or self-care (01) ==
LOC: LAB.S 10:36
PROVIDERS: ATTEND Internal Medicine Nephrology
DX: N18.6 End stage renal disease (principal); D63.1 Anemia in chronic kidney disease
CPT/HCPCS: 36415; 80069; 82570; 83970; 84156; 85014; 85018

== ENCOUNTER 2021-05-02 12:31 | Outpatient (CLI) | payer MEDICARE, BC ==
[2021-05-02 18:28] LABS: ALBUMIN 3.8 g/dL (3.2-5.5); BILIRUBIN,TOTAL 1.3 mg/dL (0.2-1.0); CALCIUM 9.3 mg/dL (8.5-10.3); CREATININE 2.4 mg/dL (0.6-1.2); POTASSIUM 4.6 mmol/L (3.5-5.0); TOTAL PROTEIN 7.6 g/dL (6.7-8.2)
== END 2021-05-02 12:32 | disposition home or self-care (01) ==
LOC: LAB.S 12:31
PROVIDERS: ATTEND Internal Medicine
DX: C15.5 Malignant neoplasm of lower third of esophagus (principal); Z79.899 Other long term (current) drug therapy
CPT/HCPCS: 36415; 80053

== ENCOUNTER 2021-05-23 12:48 | Outpatient (CLI) | payer MEDICARE, BC ==
[2021-05-23 18:00] LABS: BASOPHILS # (AUTO) 0.1 10^3/uL (0.0-0.1); BASOPHILS % (AUTO) 1.4 %; EOSINOPHILS # (AUTO) 0.1 10^3/uL (0.0-0.7); EOSINOPHILS % (AUTO) 1.9 %; HCT - HEMATOCRIT 36.5 % (42.0-52.0); HGB - HEMOGLOBIN 11.8 g/dL (14.0-18.0); LYMPHOCYTES # (AUTO) 1.1 10^3/uL (1.5-3.5); LYMPHOCYTES % (AUTO) 24.4 %; MEAN CORPUSCULAR HEMOGLOBIN 32.2 pg (27.0-31.0); MEAN CORPUSCULAR HGB CONC 32.3 g/dL (32.0-36.0); MEAN CORPUSCULAR VOLUME 99.7 fL (80.0-94.0); MEAN PLATELET VOLUME 10.5 fL (7.4-11.4); MONOCYTES # (AUTO) 1.2 10^3/uL (0.0-1.0); MONOCYTES % (AUTO) 27.2 %; NEUTROPHILS # (AUTO) 1.9 10^3/uL (1.5-6.6); NEUTROPHILS % (AUTO) 44.4 %; PLT - PLATELET COUNT 213 10^3/uL (130-450); RED BLOOD COUNT 3.66 10^6/uL (4.70-6.10); RED CELL DISTRIBUTION WIDTH 13.2 % (12.0-15.0); WHITE BLOOD COUNT 4.3 x10^3/uL (4.8-10.8)
[2021-05-23 18:12] LABS: ALBUMIN 3.4 g/dL (3.2-5.5); ALBUMIN/GLOBULIN RATIO 0.9 (1.0-2.2); BILIRUBIN,TOTAL 0.7 mg/dL (0.2-1.0); CALCIUM 9.4 mg/dL (8.5-10.3); CREATININE 2.3 mg/dL (0.6-1.2); POTASSIUM 4.2 mmol/L (3.5-5.0); TOTAL PROTEIN 7.4 g/dL (6.7-8.2)
== END 2021-05-23 12:49 | disposition home or self-care (01) ==
LOC: LAB.S 12:48
PROVIDERS: ATTEND Internal Medicine
DX: C15.5 Malignant neoplasm of lower third of esophagus (principal); Z79.899 Other long term (current) drug therapy
CPT/HCPCS: 36415; 80053; 85025

== ENCOUNTER 2021-06-06 12:35 | Outpatient (CLI) | payer MEDICARE, BC ==
[2021-06-06 18:46] LABS: BASOPHILS % (AUTO) 0.6 %; EOSINOPHILS % (AUTO) 0.6 %; HCT - HEMATOCRIT 32.9 % (42.0-52.0); LYMPHOCYTES # (AUTO) 0.7 10^3/uL (1.5-3.5); LYMPHOCYTES % (AUTO) 9.5 %; MEAN CORPUSCULAR HEMOGLOBIN 32.6 pg (27.0-31.0); MEAN CORPUSCULAR HGB CONC 33.4 g/dL (32.0-36.0); MEAN CORPUSCULAR VOLUME 97.6 fL (80.0-94.0); MEAN PLATELET VOLUME 10.6 fL (7.4-11.4); MONOCYTES # (AUTO) 0.4 10^3/uL (0.0-1.0); MONOCYTES % (AUTO) 5.1 %; NEUTROPHILS # (AUTO) 5.9 10^3/uL (1.5-6.6); NEUTROPHILS % (AUTO) 83.9 %; PLT - PLATELET COUNT 132 10^3/uL (130-450); RED BLOOD COUNT 3.37 10^6/uL (4.70-6.10); RED CELL DISTRIBUTION WIDTH 13.2 % (12.0-15.0)
[2021-06-06 19:05] LABS: ALBUMIN 3.5 g/dL (3.2-5.5); CALCIUM 9.3 mg/dL (8.5-10.3); CREATININE 2.7 mg/dL (0.6-1.2); POTASSIUM 4.4 mmol/L (3.5-5.0)
== END 2021-06-06 12:36 | disposition home or self-care (01) ==
LOC: LAB.S 12:35
PROVIDERS: ATTEND Physician Assistant
DX: C15.5 Malignant neoplasm of lower third of esophagus (principal); Z79.899 Other long term (current) drug therapy
CPT/HCPCS: 36415; 80053; 85025

== ENCOUNTER 2021-06-18 11:15 | Outpatient (CLI) | payer MEDICARE, BC ==
[2021-06-18 14:03] LABS: BASOPHILS % (AUTO) 0.6 %; EOSINOPHILS # (AUTO) 0.2 10^3/uL (0.0-0.7); EOSINOPHILS % (AUTO) 3.5 %; HCT - HEMATOCRIT 32.2 % (42.0-52.0); HGB - HEMOGLOBIN 10.5 g/dL (14.0-18.0); LYMPHOCYTES # (AUTO) 0.8 10^3/uL (1.5-3.5); LYMPHOCYTES % (AUTO) 14.7 %; MEAN CORPUSCULAR HEMOGLOBIN 32.1 pg (27.0-31.0); MEAN CORPUSCULAR HGB CONC 32.6 g/dL (32.0-36.0); MEAN CORPUSCULAR VOLUME 98.5 fL (80.0-94.0); MEAN PLATELET VOLUME 10.3 fL (7.4-11.4); MONOCYTES # (AUTO) 0.6 10^3/uL (0.0-1.0); MONOCYTES % (AUTO) 11.8 %; NEUTROPHILS # (AUTO) 3.5 10^3/uL (1.5-6.6); NEUTROPHILS % (AUTO) 68.6 %; PLT - PLATELET COUNT 166 10^3/uL (130-450); RED BLOOD COUNT 3.27 10^6/uL (4.70-6.10); RED CELL DISTRIBUTION WIDTH 13.9 % (12.0-15.0); WHITE BLOOD COUNT 5.1 x10^3/uL (4.8-10.8)
[2021-06-18 14:04] LABS: ALBUMIN 3.4 g/dL (3.2-5.5); ALBUMIN/GLOBULIN RATIO 0.9 (1.0-2.2); BILIRUBIN,TOTAL 0.9 mg/dL (0.2-1.0); CALCIUM 9.2 mg/dL (8.5-10.3); CREATININE 2.2 mg/dL (0.6-1.2); POTASSIUM 4.3 mmol/L (3.5-5.0); TOTAL PROTEIN 7.2 g/dL (6.7-8.2)
== END 2021-06-18 11:16 | disposition home or self-care (01) ==
LOC: LAB.S 11:15
PROVIDERS: ATTEND Internal Medicine
DX: C15.5 Malignant neoplasm of lower third of esophagus (principal); Z79.899 Other long term (current) drug therapy
CPT/HCPCS: 36415; 80053; 85025

== ENCOUNTER 2021-07-04 12:07 | Outpatient (CLI) | payer MEDICARE, BC ==
[2021-07-04 18:19] LABS: BASOPHILS # (AUTO) 0.1 10^3/uL (0.0-0.1); BASOPHILS % (AUTO) 0.4 %; EOSINOPHILS % (AUTO) 0.3 %; HGB - HEMOGLOBIN 10.4 g/dL (14.0-18.0); LYMPHOCYTES # (AUTO) 0.7 10^3/uL (1.5-3.5); LYMPHOCYTES % (AUTO) 6.5 %; MEAN CORPUSCULAR HEMOGLOBIN 32.7 pg (27.0-31.0); MEAN CORPUSCULAR HGB CONC 32.5 g/dL (32.0-36.0); MEAN CORPUSCULAR VOLUME 100.6 fL (80.0-94.0); MEAN PLATELET VOLUME 10.3 fL (7.4-11.4); MONOCYTES # (AUTO) 0.8 10^3/uL (0.0-1.0); MONOCYTES % (AUTO) 7.5 %; NEUTROPHILS # (AUTO) 9.5 10^3/uL (1.5-6.6); NEUTROPHILS % (AUTO) 84.9 %; PLT - PLATELET COUNT 125 10^3/uL (130-450); RED BLOOD COUNT 3.18 10^6/uL (4.70-6.10); WHITE BLOOD COUNT 11.2 x10^3/uL (4.8-10.8)
[2021-07-04 18:38] LABS: ALBUMIN 3.3 g/dL (3.2-5.5); ALBUMIN/GLOBULIN RATIO 0.9 (1.0-2.2); BILIRUBIN,TOTAL 1.2 mg/dL (0.2-1.0); CALCIUM 9.1 mg/dL (8.5-10.3); CREATININE 2.5 mg/dL (0.6-1.2); POTASSIUM 4.8 mmol/L (3.5-5.0); TOTAL PROTEIN 6.9 g/dL (6.7-8.2)
== END 2021-07-04 12:08 | disposition home or self-care (01) ==
LOC: LAB.S 12:07
PROVIDERS: ATTEND Internal Medicine
DX: C15.5 Malignant neoplasm of lower third of esophagus (principal); Z79.899 Other long term (current) drug therapy
CPT/HCPCS: 36415; 80053; 85025

== ENCOUNTER 2021-07-18 12:14 | Outpatient (CLI) | payer MEDICARE, BC ==
[2021-07-18 18:43] LABS: BASOPHILS % (AUTO) 0.9 %; EOSINOPHILS # (AUTO) 0.1 10^3/uL (0.0-0.7); EOSINOPHILS % (AUTO) 2.2 %; HCT - HEMATOCRIT 31.4 % (42.0-52.0); HGB - HEMOGLOBIN 10.2 g/dL (14.0-18.0); LYMPHOCYTES # (AUTO) 0.7 10^3/uL (1.5-3.5); LYMPHOCYTES % (AUTO) 15.3 %; MEAN CORPUSCULAR HEMOGLOBIN 32.6 pg (27.0-31.0); MEAN CORPUSCULAR HGB CONC 32.5 g/dL (32.0-36.0); MEAN CORPUSCULAR VOLUME 100.3 fL (80.0-94.0); MEAN PLATELET VOLUME 10.3 fL (7.4-11.4); MONOCYTES # (AUTO) 0.6 10^3/uL (0.0-1.0); MONOCYTES % (AUTO) 13.6 %; NEUTROPHILS # (AUTO) 3.1 10^3/uL (1.5-6.6); NEUTROPHILS % (AUTO) 67.6 %; PLT - PLATELET COUNT 132 10^3/uL (130-450); RED BLOOD COUNT 3.13 10^6/uL (4.70-6.10); RED CELL DISTRIBUTION WIDTH 14.9 % (12.0-15.0); WHITE BLOOD COUNT 4.6 x10^3/uL (4.8-10.8)
[2021-07-18 18:53] LABS: ALBUMIN 3.4 g/dL (3.2-5.5); ALBUMIN/GLOBULIN RATIO 0.9 (1.0-2.2); BILIRUBIN,TOTAL 0.9 mg/dL (0.2-1.0); CALCIUM 9.4 mg/dL (8.5-10.3); CREATININE 2.4 mg/dL (0.6-1.2); POTASSIUM 4.8 mmol/L (3.5-5.0); TOTAL PROTEIN 7.1 g/dL (6.7-8.2)
== END 2021-07-18 12:15 | disposition home or self-care (01) ==
LOC: LAB.S 12:14
PROVIDERS: ATTEND Internal Medicine
DX: C15.5 Malignant neoplasm of lower third of esophagus (principal); Z79.899 Other long term (current) drug therapy
CPT/HCPCS: 36415; 80053; 85025

== ENCOUNTER 2021-08-01 12:51 | Outpatient (CLI) | payer MEDICARE, BC ==
[2021-08-01 19:15] LABS: BASOPHILS # (AUTO) 0.1 10^3/uL (0.0-0.1); BASOPHILS % (AUTO) 1.1 %; EOSINOPHILS # (AUTO) 0.1 10^3/uL (0.0-0.7); EOSINOPHILS % (AUTO) 1.4 %; HCT - HEMATOCRIT 31.9 % (42.0-52.0); HGB - HEMOGLOBIN 10.4 g/dL (14.0-18.0); LYMPHOCYTES # (AUTO) 0.7 10^3/uL (1.5-3.5); LYMPHOCYTES % (AUTO) 12.9 %; MEAN CORPUSCULAR HEMOGLOBIN 32.8 pg (27.0-31.0); MEAN CORPUSCULAR HGB CONC 32.6 g/dL (32.0-36.0); MEAN CORPUSCULAR VOLUME 100.6 fL (80.0-94.0); MEAN PLATELET VOLUME 10.8 fL (7.4-11.4); MONOCYTES # (AUTO) 0.6 10^3/uL (0.0-1.0); MONOCYTES % (AUTO) 10.9 %; NEUTROPHILS # (AUTO) 4.1 10^3/uL (1.5-6.6); NEUTROPHILS % (AUTO) 73.2 %; PLT - PLATELET COUNT 123 10^3/uL (130-450); RED BLOOD COUNT 3.17 10^6/uL (4.70-6.10); RED CELL DISTRIBUTION WIDTH 15.1 % (12.0-15.0); WHITE BLOOD COUNT 5.6 x10^3/uL (4.8-10.8)
[2021-08-01 19:21] LABS: ALBUMIN 3.2 g/dL (3.2-5.5); ALBUMIN/GLOBULIN RATIO 0.8 (1.0-2.2); BILIRUBIN,TOTAL 0.7 mg/dL (0.2-1.0); CALCIUM 9.2 mg/dL (8.5-10.3); CREATININE 2.2 mg/dL (0.6-1.2); POTASSIUM 4.5 mmol/L (3.5-5.0)
== END 2021-08-01 12:52 | disposition home or self-care (01) ==
LOC: LAB.S 12:51
PROVIDERS: ATTEND Internal Medicine
DX: Z79.899 Other long term (current) drug therapy (principal); C15.5 Malignant neoplasm of lower third of esophagus
CPT/HCPCS: 36415; 80053; 85025

== ENCOUNTER 2021-08-15 12:36 | Outpatient (CLI) | payer MEDICARE, BC ==
[2021-08-15 18:05] LABS: BASOPHILS % (AUTO) 1.8 %; EOSINOPHILS # (AUTO) 0.1 10^3/uL (0.0-0.7); HCT - HEMATOCRIT 29.1 % (42.0-52.0); HGB - HEMOGLOBIN 9.3 g/dL (14.0-18.0); LYMPHOCYTES # (AUTO) 0.6 10^3/uL (1.5-3.5); LYMPHOCYTES % (AUTO) 38.6 %; MEAN CORPUSCULAR HEMOGLOBIN 32.3 pg (27.0-31.0); MEAN PLATELET VOLUME 11.4 fL (7.4-11.4); MONOCYTES # (AUTO) 0.2 10^3/uL (0.0-1.0); MONOCYTES % (AUTO) 10.8 %; NEUTROPHILS # (AUTO) 0.8 10^3/uL (1.5-6.6); NEUTROPHILS % (AUTO) 45.8 %; PLT - PLATELET COUNT 107 10^3/uL (130-450); RED BLOOD COUNT 2.88 10^6/uL (4.70-6.10); RED CELL DISTRIBUTION WIDTH 15.1 % (12.0-15.0)
[2021-08-15 18:16] LABS: ALBUMIN/GLOBULIN RATIO 0.8 (1.0-2.2); BILIRUBIN,TOTAL 0.7 mg/dL (0.2-1.0); CALCIUM 8.9 mg/dL (8.5-10.3); POTASSIUM 4.6 mmol/L (3.5-5.0); SLIDE REVIEW? Indicated; TOTAL PROTEIN 6.7 g/dL (6.7-8.2); WHITE BLOOD COUNT 1.7 x10^3/uL (4.8-10.8)
[2021-08-15 18:50] LABS: PLATELET ESTIMATE, MANUAL DECREASED (<130,000) (NORMAL); PLATELET MORPHOLOGY NORMAL APPEARANCE (NORMAL); WBC MORPHOLOGY (MULTIPLE) NORMAL APPEARANCE (NORMAL)
== END 2021-08-15 12:37 | disposition home or self-care (01) ==
LOC: LAB.S 12:36
PROVIDERS: ATTEND Internal Medicine
DX: C15.5 Malignant neoplasm of lower third of esophagus (principal); Z79.899 Other long term (current) drug therapy
CPT/HCPCS: 36415; 80053; 85025

== ENCOUNTER 2021-08-26 08:00 | Outpatient (CLI) | payer MEDICARE, BC | END 2021-08-26 23:59 | disposition home or self-care (01) | LOC: LAB.R 08:00 | PROVIDERS: ATTEND Internal Medicine | DX: C15.5 Malignant neoplasm of lower third of esophagus (principal); R19.7 Diarrhea, unspecified; Z79.899 Other long term (current) drug therapy | CPT/HCPCS: 87493 ==

== ENCOUNTER 2021-08-28 13:08 | Outpatient (CLI) | payer MEDICARE, BC ==
[2021-08-28 15:17] LABS: EOSINOPHILS % (AUTO) 0.3 %; MEAN CORPUSCULAR VOLUME 99.7 fL (80.0-94.0); RED CELL DISTRIBUTION WIDTH 15.3 % (12.0-15.0)
[2021-08-28 15:20] LABS: BASOPHILS % (AUTO) 0.7 %; HCT - HEMATOCRIT 32.1 % (42.0-52.0); HGB - HEMOGLOBIN 10.4 g/dL (14.0-18.0); LYMPHOCYTES % (AUTO) 5.6 %; MEAN CORPUSCULAR HEMOGLOBIN 32.3 pg (27.0-31.0); MEAN CORPUSCULAR HGB CONC 32.4 g/dL (32.0-36.0); MONOCYTES % (AUTO) 13.1 %; NEUTROPHILS % (AUTO) 75.2 %; PLT - PLATELET COUNT 304 10^3/uL (130-450); RED BLOOD COUNT 3.22 10^6/uL (4.70-6.10); WHITE BLOOD COUNT 19.5 x10^3/uL (4.8-10.8)
[2021-08-28 15:26] LABS: ABNORMAL LYMPHS % (MANUAL) 0 %
[2021-08-28 15:29] LABS: ALBUMIN 2.7 g/dL (3.2-5.5); ALBUMIN/GLOBULIN RATIO 0.6 (1.0-2.2); BILIRUBIN,TOTAL 0.9 mg/dL (0.2-1.0); CREATININE 3.3 mg/dL (0.6-1.2); POTASSIUM 4.4 mmol/L (3.5-5.0)
[2021-08-28 16:46] LABS: BAND NEUTROPHILS % (MANUAL) 2 %; LYMPHOCYTES # (MANUAL) 0.8 10^3/uL (1.5-3.5); LYMPHOCYTES % (MANUAL) 3 %; MONOCYTES # (MANUAL) 2.1 10^3/uL (0.0-1.0); NEUTROPHILS # (MANUAL) 16.6 10^3/uL (1.5-6.6); REACTIVE LYMPHS % (MANUAL) 1 %
[2021-08-28 16:47] LABS: DIFFERENTIAL COMMENT MANUAL DIFFERENTIAL; PLATELET ESTIMATE, MANUAL NORMAL (130-450,000) (NORMAL); PLATELET MORPHOLOGY NORMAL APPEARANCE (NORMAL); RBC MORPHOLOGY (MULTIPLE) NORMAL APPEARANCE (NORMAL)
== END 2021-08-28 13:09 | disposition home or self-care (01) ==
LOC: LAB.R 13:08 → LAB.S 13:09
PROVIDERS: ATTEND Internal Medicine
DX: C15.5 Malignant neoplasm of lower third of esophagus (principal); Z79.899 Other long term (current) drug therapy
CPT/HCPCS: 36415; 80053; 81599; 85025

== ENCOUNTER 2021-09-12 12:30 | Outpatient (CLI) | payer MEDICARE, BC ==
[2021-09-12 17:49] LABS: BASOPHILS # (AUTO) 0.1 10^3/uL (0.0-0.1); EOSINOPHILS # (AUTO) 0.3 10^3/uL (0.0-0.7); EOSINOPHILS % (AUTO) 2.4 %; HCT - HEMATOCRIT 32.1 % (42.0-52.0); HGB - HEMOGLOBIN 10.3 g/dL (14.0-18.0); LYMPHOCYTES % (AUTO) 9.5 %; MEAN CORPUSCULAR HGB CONC 32.1 g/dL (32.0-36.0); MEAN CORPUSCULAR VOLUME 102.9 fL (80.0-94.0); MEAN PLATELET VOLUME 10.1 fL (7.4-11.4); MONOCYTES # (AUTO) 1.1 10^3/uL (0.0-1.0); MONOCYTES % (AUTO) 10.7 %; NEUTROPHILS % (AUTO) 75.8 %; PLT - PLATELET COUNT 280 10^3/uL (130-450); RED BLOOD COUNT 3.12 10^6/uL (4.70-6.10); RED CELL DISTRIBUTION WIDTH 15.5 % (12.0-15.0); WHITE BLOOD COUNT 10.6 x10^3/uL (4.8-10.8)
[2021-09-12 17:57] LABS: ALBUMIN/GLOBULIN RATIO 0.8 (1.0-2.2); BILIRUBIN,TOTAL 0.7 mg/dL (0.2-1.0); CALCIUM 9.1 mg/dL (8.5-10.3); CREATININE 2.1 mg/dL (0.6-1.2); TOTAL PROTEIN 6.9 g/dL (6.7-8.2)
== END 2021-09-12 12:31 | disposition home or self-care (01) ==
LOC: LAB.S 12:30
PROVIDERS: ATTEND Internal Medicine
DX: C15.5 Malignant neoplasm of lower third of esophagus (principal)
CPT/HCPCS: 36415; 80053; 85025

== ENCOUNTER 2021-10-13 10:44 | Outpatient (CLI) | payer MEDICARE, BC | END 2021-10-13 10:45 | disposition home or self-care (01) | LOC: LAB.S 10:44 | PROVIDERS: ATTEND Internal Medicine | DX: Z53.9 Procedure and treatment not carried out, unspecified reason (principal) | CPT/HCPCS: 87493 ==

== ENCOUNTER 2021-10-23 08:00 | Outpatient (CLI) | payer MEDICARE, BC | END 2021-10-23 08:01 | disposition home or self-care (01) | LOC: LAB.R 08:00 | PROVIDERS: ATTEND Family Medicine | DX: R19.7 Diarrhea, unspecified (principal) | CPT/HCPCS: 87493 ==

== ENCOUNTER 2021-11-17 08:00 | Outpatient (CLI) | payer MEDICARE, BC ==
[2021-11-17 19:50] LABS: HCT - HEMATOCRIT 34.3 % (42.0-52.0); HGB - HEMOGLOBIN 10.7 g/dL (14.0-18.0); MEAN CORPUSCULAR HEMOGLOBIN 29.9 pg (27.0-31.0); MEAN CORPUSCULAR HGB CONC 31.2 g/dL (32.0-36.0); MEAN CORPUSCULAR VOLUME 95.8 fL (80.0-94.0); MEAN PLATELET VOLUME 9.7 fL (7.4-11.4); RED BLOOD COUNT 3.58 10^6/uL (4.70-6.10); RED CELL DISTRIBUTION WIDTH 15.3 % (12.0-15.0)
[2021-11-17 19:58] LABS: CALCIUM 9.2 mg/dL (8.5-10.3); CREATININE 2.5 mg/dL (0.6-1.2); POTASSIUM 4.6 mmol/L (3.5-5.0)
== END 2021-11-17 23:56 | disposition home or self-care (01) ==
LOC: LAB.S 08:00
PROVIDERS: ATTEND Physician Assistant Medical
DX: N28.9 Disorder of kidney and ureter, unspecified (principal)
CPT/HCPCS: 36415; 80048; 85025; 85027

== ENCOUNTER 2021-12-10 21:54 | Outpatient (CLI) | payer MEDICARE, BC | END 2021-12-10 21:55 | disposition short-term general hospital (02) | LOC: EMS 21:54 | DX: R56.9 Unspecified convulsions (principal); R53.1 Weakness; R47.81 Slurred speech; R29.810 Facial weakness | CPT/HCPCS: A0425; A0427 ==

== ENCOUNTER 2021-12-23 16:36 | Inpatient (IN) | payer OTHER ==
[2021-12-23] MEDS ORDERED: HALOPERIDOL 5 MG/ML VIAL IVP PRN (16:49)
[2021-12-23] MEDS ORDERED: LORazepam 2 MG/ML VIAL IVP STA (16:49)
[2021-12-23] MEDS ORDERED: CARBOXYMETHYLCELLULOSE OPHTH DROPS EACHEYE PRN (16:49)
[2021-12-23] MEDS ORDERED: ACETAMINOPHEN 325 MG TABLET PO PRN (16:49)
[2021-12-23] MEDS ORDERED: MORPHINE 2 MG/ML CARPUJECT IVP STA (16:49)
[2021-12-23] MEDS ORDERED: ACETAMINOPHEN 650 MG SUPP PR PRN (16:49)
[2021-12-23] MEDS ORDERED: LORazepam 2 MG/ML VIAL IVP PRN (16:49)
[2021-12-23] MEDS: HALOPERIDOL 5 MG/ML VIAL IVP SCH ×2 (18:40→22:21)
[2021-12-23] MEDS: LORazepam 2 MG/ML VIAL IVP SCH ×2 (18:53→22:26)
[2021-12-23] MEDS: MORPHINE 2 MG/ML CARPUJECT IVP PRN (18:54)
--- OUTSIDE RECORDS SUMMARY | 2021-12-23 19:02 | EXTERNAL MEDICAL SUMMARY RPT | Continuity of Care Document ---
:1950 Author Organization [place] Address [address] [phone] Phone Allergies No information. Encounters No information. Functional Status No information. Immunizations No information. Medications date description facility [id number] doxycycline monohydrate [facility] [id number] doxycycline monohydrate [facility] Problems No information. Procedures date description facility [id number] Basic Metabolic Panel (BMP) [facility] [id number] CBC W/O Diff/Plt [facility] Care & Ancillary Services [facility] Results/Labs No information. Social History No information. Vital Signs date measurement value units [id number] BMI BMI 24.60 kg/m2 [id number]+0000 BP_diastolic BP_diastolic 75 mm[H g] [id number]+0000 BP_systolic BP_systolic 119 mm[Hg] [id number]+0000 heart_rate heart_rate 109 /min [id number]+0000 height_metric height_metric 175.26 cm [id number]+0000 height_standard height_standard 69 in [id number]+0000 respiration_rate respiration_rate 26 /min [id number]+0000 weight_metric weight_metric 75.3 kg [id number]+0000 weight_standard weight_standard 166 lb
[2021-12-23] MEDS ORDERED: MORPHINE 2 MG/ML CARPUJECT IVP SCH (21:00)
[2021-12-23] MEDS ORDERED: dexAMETHasone 4 MG TABLET PO SCH (21:00)
[2021-12-23] MEDS: dexAMETHasone 4 MG TABLET PO SCH ×2 (22:21→23:00)
[2021-12-23] MEDS: HALOPERIDOL 5 MG/ML VIAL IVP PRN (23:10)
[2021-12-24] MEDS: MORPHINE 2 MG/ML CARPUJECT IVP SCH ×6 (02:25→22:28)
[2021-12-24] MEDS: HALOPERIDOL 5 MG/ML VIAL IVP SCH ×6 (02:30→22:28)
[2021-12-24] MEDS: LORazepam 2 MG/ML VIAL IVP SCH ×3 (02:37→09:05)
[2021-12-24] MEDS: HALOPERIDOL 5 MG/ML VIAL IVP PRN ×2 (07:49→12:26)
[2021-12-24] MEDS ORDERED: LIDOCAINE 2% URO-JET 5 ML SYRINGE UR ONE (08:21)
[2021-12-24] MEDS ORDERED: LIDOCAINE OINTMENT 5% 35.44 GM TUBE ONE (08:39)
[2021-12-24] MEDS: dexAMETHasone 4 MG TABLET PO SCH ×2 (09:04→21:46)
[2021-12-24] MEDS ORDERED: LORazepam 100MG/100ML D5W 100 ML IV SCH (11:30)
[2021-12-24] MEDS: MORPHINE 2 MG/ML CARPUJECT IVP PRN (12:25)
--- NOTE | 2021-12-24 17:22 | HISTORY & PHYSICAL EXAMINATION ---
History and Physical - History and Physical 71 yo male w/ esophageal cancer w/mets to retroperitoneum and possibly lungs. He'd got c diff and has been on a break from chemotherapy as a result. He suffered a seizure recently and was transported to [facility]. CT and MRI reviealed large left frontal lobe mass w/edema and hemorrhage. He was initiated on Keppra, Zonegran and dexamethasone. Plan was to d/c home w/home hospice on 12/23/21. En route home via EMS, he reportedly had some agitation. He arrived home on 12/23 around 1pm. full stack engineer presented shortly thereafter for admission. He was noted to be agitated and was frequently trying to get up but was not safe. He began c/o a headache and was noted to have SBP of 220. After receiving morphine and lorazepam, his SBP came down to 180s but he remained very restless and agitated. He was also noted to have a newly flaccid right arm. He was given metoprolol 25 mg ER. Total meds through the afternoon: 1310 Morphine 0.25ml with Loraz 0.5mg 1340 metoprolol ER 25mg, Haldol 1mg 1430 Morphine 0.25ml, lorazepam 1mg small focal seizure 1445 Haldol 4mg now per Dr. Arias. Dexamethasone 4mg 1530 haldol 2mg 1600 morphine 10mg with lorazepam 1mg small focal seizure Still trying to get OOB 1715 morphine 10mg with Haldol 2mg Due to concerns of escalating symptoms, [facility] admission was recommended. full stack engineer reported pt had been voiding w/o difficulty. Pt admitted to [facility] level of care overnight. RNs made [address] a hassan overnight, but couldn't advance any catheter past 1/2 inch into urethral meatus. Bladder scan this am>700cc. Upon my arrival at 0830, pt was very restless and agitated. He was trying to get out of bed. He cannot provide any history. ROS: Cannot be obtained. PMH: Metastatic esophageal cancer HTN Anemia COPD GERD CKD stage 4 Hyperlipidemia Meds: Patient History Medication Instructions Recorded Confirmed Albuterol Sulf [Ventolin Hfa 1 - 2 puffs INH Q4HR PRN 04/29/20 04/29/20 Inhaler] Aspirin Chewable [St Vishnu 81 mg PO DAILY 04/29/20 04/29/20 Aspirin] Budesonide/Formoterol Fumarate 1 puffs INH DAILY 04/29/20 04/29/20D [Symbicort 80-4.5 Mcg Inhaler] Metoclopramide [Reglan] 1 tab PO PRN PRN 04/29/20 04/29/20 Metoprolol Succinate [Toprol Xl] 25 mg PO DAILY 04/29/20 04/29/20 Pantoprazole [Protonix] 40 mg PO DAILY 04/29/20 04/29/20 Prochlorperazine [Compazine] 10 mg PO Q6H PRN 04/29/20 04/29/20 Rosuvastatin Calcium [Crestor] 20 mg PO DAILY 04/29/20 04/29/20 amLODIPine [Norvasc] 5 mg PO HS 04/29/20 04/29/20 ALL: prazosin, atorvastatin Fam Hx: Unable to obtain Social Hx: Lives in [place]. , Cailin. 2 children. Former tobacco user. Exam: Gen: Restless and agitated middle aged male, noncommunicative HEENT: NC, face symmetric Chest: Res excursions symmetric, CTAB CV: tachycardic w/RR, no M/R/G Abd: soft, firm bladder, NT/ND, BT hypoactive Extr: warm, well perfused, no c/c/e Assessment: 1. Metastatic esophageal cancer w/brain mets Probable extension of hemorrhage causing his new RUE flaccidity. Pt was intiate d on scheduled IV lorazepam, haldol and morphine overnight. 2. Urinary retention I made multiple efforts to place hassan as well as 8 romanian nasogatric tube in attempts to relieve his urinary retention. He has a very tight stricture approximately 1/4 inch into urethral meatus. Due to his end of life status, does not wish to pursue any aggressive measures (percutaneous drain per IR or placement in OR by gen surg). 3. Terminal delirium Will increase sedation due to likelihood of worsening restlessness and agitation as his urinary retention worsens. Will start lorazepam infusion and titrate to comfort. 4. HTN Not treating d/t EOL status. Code status DNR/DNI
[2021-12-25] MEDS: GLYCOPYRROLATE 1 MG/5 ML VIAL SUBQ PRN ×3 (00:52→08:02)
[2021-12-25] MEDS: MORPHINE 2 MG/ML CARPUJECT IVP SCH ×2 (04:16→08:00)
[2021-12-25] MEDS: HALOPERIDOL 5 MG/ML VIAL IVP SCH ×2 (04:16→08:01)
[2021-12-25 08:00] VITALS: BP 87/50
--- NOTE | 2021-12-25 12:13 | DISCHARGE SUMMARY ---
Discharge Summary Admit Date: 12/23/21 Discharge Date: 12/24/21 Discharge Disposition: 20 - DIAGNOSES Admission Diagnoses: 1. Metastatic esophageal cancer w/brain mets 2. Urinary retention 3. Terminal delirium 4. HTN Discharge Diagnoses with Status of Each Condition: 1. Metastatic esophageal cancer w/brain metastasis and hemorrhage 2. Urinary retention secondary to severe urethral stricture 3. Terminal delirium 4. HTN - HPI History of Present Illness: 71 yo male w/ esophageal cancer w/mets to retroperitoneum and possibly lungs. He'd got c diff and has been on a break from chemotherapy as a result. He suffered a seizure recently and was transported to [facility]. CT and MRI reviealed large left frontal lobe mass w/edema and hemorrhage. He was initiated on Keppra, Zonegran and dexamethasone. Plan was to d/c home w/home hospice on 12/23/21. En route home via EMS, he reportedly had some agitation. He arrived home on 12/23 around 1pm. organizational effectiveness consultant presented shortly thereafter for admission. He was noted to be agitated and was frequently trying to get up but was not safe. He began c/o a headache and was noted to have SBP of 220. After receiving morphine and lorazepam, his SBP came down to 180s but he remained very restless and agitated. He was also noted to have a newly flaccid right arm. He was given metoprolol 25 mg ER. Total meds through the afternoon: 1310 Morphine 0.25ml with Loraz 0.5mg 1340 metoprolol ER 25mg, Haldol 1mg 1430 Morphine 0.25ml, lorazepam 1mg small focal seizure 1445 H[address]ol [address] now [address] Arias. Dexamethasone 4mg 1530 haldol 2mg 1600 morphine 10mg with lorazepam 1mg small focal seizure Still trying to get OOB 1715 morphine 10mg with Haldol 2mg Due to concerns of escalating symptoms, [facility] admission was recommended. organizational effectiveness consultant reported pt had been voiding w/o difficulty. Pt admitted to [facility] level of care overnight. RNs made [address] a hassan overnight, but couldn't advance any catheter past 1/2 inch into urethral meatus. Bladder scan this am>700cc. Upon my arrival at 0830, pt was very restless and agitated. He was trying to get out of bed. He cannot provide any history. - HOSPITAL COURSE Hospital Course: Patient was recently dx'd w/a large brain met w/hemorrhage causing seizure which was dx'd in the setting of known metastatic esophageal cancer. He was discharged from [facility] on 12/23/21 and returned to [facility] via EMS. He was admitted to hospice services shortly after arriving home. He had severe agitation, new RUE flaccidity and elevated blood pressures and was complaining of headache, raising concern for hemorrhagic extension of his known brain hemorrhage. Due to inability to get him comfortable at home for over 4 hours, he was admitted to [facility] to [facility] level of care. He was placed on scheduled and IVP haldol for agitation, morphine for pain, and lorazepam for seizure prevention d/t his inability to take his antiepileptic medications and dexamethasone. Overnight on 12/23, he developed worsening urinary retention and despite multiple RN attempts, a catheter could not be placed. On 12/24/21, I evaluated and again made prolonged efforts at placing a hassan, but d/t severe stricture at the urethral meatus, I could pass nothing larger than an IV catheter tip. Discussed options w/pt's , Cailin, including percutaneous drain placement via IR or general surgery vs. increasing his level of sedation w/infusion to improve his discomfort and agitation from urinary retention. Pt's spouse elected sedation d/t his end of life status. Pt was placed on a lorazepam infusion w/instructions to titrate to comfort, continued on scheduled and PRN morphine and continued on scheduled and PRN haldol. Upon reassessment by hospice hemodialysis charge nurse, he was noted to be awake, nonverbal (as he had been earlier in the am) and comfortable. Pt was noted to on 12/25/21 at 0832. - ALLERGIES Allergies/Adverse Reactions: Allergies Allergy/AdvReac Type Severity Reaction Status Date / Time prazosin Allergy Unknown Verified 04/29/20 13:29 atorvastatin AdvReac Unknown Verified 04/29/20 13:29 - MEDICATIONS Home Medications: Ambulatory Orders Medication Instructions Recorded Confirmed Albuterol Sulf [Ventolin Hfa 1 - 2 puffs INH Q4HR PRN 04/29/20 04/29/20 Inhaler] Aspirin Chewable [St Vishnu 81 mg PO DAILY 04/29/20 04/29/20 Aspirin] Budesonide/Formoterol Fumarate 1 puffs INH DAILY 04/29/20 04/29/20 [Symbicort 80-4.5 Mcg Inhaler] Metoclopramide [Reglan] 1 tab PO PRN PRN 04/29/20 04/29/20 Metoprolol Succinate [Toprol Xl] 25 mg PO DAILY 04/29/20 04/29/20 Pantoprazole [Protonix] 40 mg PO DAILY 04/29/20 04/29/20 Prochlorperazine [Compazine] 10 mg PO Q6H PRN 04/29/20 04/29/20 Rosuvastatin Calcium [Crestor] 20 mg PO DAILY 04/29/20 04/29/20 amLODIPine [Norvasc] 5 mg PO HS 04/29/20 04/29/20
== END 2021-12-25 08:32 | disposition expired | DRG 374 ==
LOC: MS2 16:48
PROVIDERS: ADMIT Family Medicine; ATTEND Family Medicine
DX: C15.9 Malignant neoplasm of esophagus, unspecified (principal); I61.9 Nontraumatic intracerebral hemorrhage, unspecified; C79.31 Secondary malignant neoplasm of brain; C78.01 Secondary malignant neoplasm of right lung; C78.02 Secondary malignant neoplasm of left lung; C78.6 Secondary malignant neoplasm of retroperitoneum and peritoneum; N18.4 Chronic kidney disease, stage 4 (severe); N35.919 Unspecified urethral stricture, male, unspecified site; J44.9 Chronic obstructive pulmonary disease, unspecified; I12.9 Hypertensive chronic kidney disease with stage 1 through stage 4 chronic kidney disease, or unspecified chronic kidney disease; K21.9 Gastro-esophageal reflux disease without esophagitis; E78.5 Hyperlipidemia, unspecified; R41.0 Disorientation, unspecified; R45.1 Restlessness and agitation; Z51.5 Encounter for palliative care; Z66 Do not resuscitate; Z86.19 Personal history of other infectious and parasitic diseases; Z92.21 Personal history of antineoplastic chemotherapy
CPT/HCPCS: A9270; J2060

== ENCOUNTER 2021-12-23 16:53 | Outpatient (CLI) | payer MEDICARE, BC | END 2021-12-23 16:54 | disposition critical access hospital (66) | LOC: EMS 16:53 | DX: R45.1 Restlessness and agitation (principal); R41.0 Disorientation, unspecified; Z78.1 Physical restraint status | CPT/HCPCS: A0425; A0429 ==